=== PATIENT | female | born 1955 | race African-American/Black ===

== ENCOUNTER 2018-05-15 09:16 | Outpatient (CLI) | payer MEDICAID, MEDICARE | END 2018-05-15 09:17 | disposition home or self-care (01) | LOC: BICMAMMO 09:16 | PROVIDERS: ATTEND Emergency Medicine | DX: Z12.31 Encounter for screening mammogram for malignant neoplasm of breast (principal) | CPT/HCPCS: 77063; 77067 ==

== ENCOUNTER 2018-06-04 13:58 | Emergency (ER) | payer MEDICARE ==
[2018-06-04 15:02] LABS: #Basophils 0.1 thou/uL (0.0-0.2); #Eosinphils 0.1 thou/uL (0.0-0.7); #Lymphocytes 2.9 thou/uL (1.20-3.40); #Monocytes 0.7 thou/uL (0.11-0.59); #Neutrophils 4.7 thou/uL (1.40-6.50); %Basophils 1.1 % (0.0-1.0); %Eosinophils 1.4 % (0.0-10.0); %Lymphocytes 33.9 % (21.0-51.0); %Monocytes 8.5 % (0.0-10.0); %Neutrophils 55.2 % (42.0-75.0); Hemoglobin 14.1 g/dL (12.0-16.0); Mean Corpuscular HGB CONC 32.7 g/dL (32.0-36.0); Mean Corpuscular Hemoglobin 31.8 pg (27.0-31.0); Mean Corpuscular Volume 97.4 fL (78.0-98.0); Mean Platelet Volume 8.1 fL (7.4-10.4); Platelet Count 266 thou/uL (130-400); RBC Distribution Width 11.6 % (11.5-14.5); Red Blood Cell (RBC) Count 4.45 mill/uL (4.20-5.40); White Blood Cell (WBC) Count 8.5 thou/uL (4.8-10.8)
[2018-06-04 15:22] LABS: ALT (SGPT) 38 U/L (8-55); AST (SGOT) 34 U/L (5-34); Albumin 3.6 g/dL (3.4-4.8); Alkaline Phosphatase 114 U/L (40-150); Anion Gap 16 mmol/L (10-20); BUN (Urea Nitrogen) 16 mg/dL (9.8-20.1); Bilirubin, Total 0.6 mg/dL (0.2-1.2); CK (CPK) 55 U/L (29-168); Calc. Creatinine Clearance 0 mL/min (70-130); Calcium 9.8 mg/dL (7.8-10.44); Carbon Dioxide 23 mmol/L (23-31); Chloride 105 mmol/L (98-107); Estimated GFR-MDRD 66; Globulin 4.7 g/dL (2.4-3.5); Glucose 112 mg/dL (80-115); Potassium 3.4 mmol/L (3.5-5.1); Protein, Total 8.3 g/dL (6.0-8.3); Sodium 141 mmol/L (136-145)
--- NOTE | 2018-06-04 15:37 | CT ---
CT BRAIN: 06/04/2018 PROVIDED CLINICAL HISTORY: Headache. COMPARISON: None. FINDINGS: Gliosis and encephalomalacia in the distribution of the left middle cerebral artery is noted, compati ble with prior infarction. Mild ex vacuo dilatation of the frontal horn of the left lateral ventricl e. There is no evidence for hydrocephalus. There is no evidence for intraperitoneal hemorrhage or m ass effect. The extracranial soft tissues and osseous structures demonstrate an unremarkable CT appe arance. IMPRESSION: No evidence for intracranial hemorrhage or mass effect. POS: EBONIE
[2018-06-04 15:56] LABS: CKMB 1.3 ng/mL (0-6.6); Troponin I 0.011 ng/mL (< 0.028)
[2018-06-04 16:06] LABS: Bilirubin Negative (Negative); Blood, Urine Trace (Negative); Clarity CLEAR (Clear); Glucose, Urine (Dipstick) 250 mg/dL (Negative); Leukocyte Negative (Negative); Nitrite Negative (Negative); Protein, Urine (Dipstick) 300 mg/dL (Neg-Trace); Specific Gravity, Urine 1.008 (1.002-1.036); pH, Urine 6.5 (5.0-9.0)
[2018-06-04] MEDS ORDERED: diphenhydrAMINE 50 MG/ML VIAL ONE (16:06)
[2018-06-04] MEDS ORDERED: Metoclopramide HCl 10 MG/2 ML VIAL ONE (16:06)
[2018-06-04 16:08] LABS: Bacteria/HPF None Seen HPF (None Seen); Hyaline Casts/LPF 0-3 HYALINE CAST LPF (0-3 Hyaline); RBC/HPF 0-3 HPF (0-3); Squamous Epithelial 0-3 HPF (0-3); WBC/HPF 0-3 HPF (0-3)
[2018-06-04] MEDS ORDERED: hydrALAZINE 20 MG/ML VIAL ONE (16:18)
[2018-06-04] MEDS ORDERED: cloNIDine 0.1 MG TAB ONE (17:07)
== END 2018-06-04 20:00 | disposition home or self-care (01) ==
LOC: ERS 13:58
DX: R51 Headache (principal); I10 Essential (primary) hypertension; E11.9 Type 2 diabetes mellitus without complications; F17.210 Nicotine dependence, cigarettes, uncomplicated; Z71.6 Tobacco abuse counseling; Z79.4 Long term (current) use of insulin; Z79.899 Other long term (current) drug therapy; Z79.82 Long term (current) use of aspirin
CPT/HCPCS: 36415; 70450; 80053; 81003; 81015; 82553; 84484; 85025; 93005; 96365; 96375; 99406; J0360; J1200; J2765

== ENCOUNTER 2018-07-11 12:16 | Outpatient (CLI) | payer MEDICARE ==
[2018-07-11 13:32] LABS: #Basophils 0.1 thou/uL (0.0-0.2); #Eosinphils 0.2 thou/uL (0.0-0.7); #Lymphocytes 3.7 thou/uL (1.20-3.40); #Monocytes 0.8 thou/uL (0.11-0.59); #Neutrophils 3.8 thou/uL (1.40-6.50); %Basophils 0.9 % (0.0-1.0); %Eosinophils 2.7 % (0.0-10.0); %Lymphocytes 42.8 % (21.0-51.0); %Monocytes 9.2 % (0.0-10.0); %Neutrophils 44.4 % (42.0-75.0); Mean Corpuscular HGB CONC 31.5 g/dL (32.0-36.0); Mean Corpuscular Hemoglobin 30.9 pg (27.0-31.0); Mean Corpuscular Volume 98.2 fL (78.0-98.0); Mean Platelet Volume 7.6 fL (7.4-10.4); Platelet Count 332 thou/uL (130-400); RBC Distribution Width 12.9 % (11.5-14.5); White Blood Cell (WBC) Count 8.5 thou/uL (4.8-10.8)
[2018-07-11 13:53] LABS: Anion Gap 12 mmol/L (10-20); BUN (Urea Nitrogen) 36 mg/dL (9.8-20.1); Calc. Creatinine Clearance 0 mL/min (70-130); Calcium 9.4 mg/dL (7.8-10.44); Carbon Dioxide 25 mmol/L (23-31); Chloride 107 mmol/L (98-107); Estimated GFR-MDRD 47; Glucose 126 mg/dL (80-115); Potassium 4.5 mmol/L (3.5-5.1); Sodium 139 mmol/L (136-145)
== END 2018-07-11 12:17 | disposition home or self-care (01) ==
LOC: LABBT 12:16
PROVIDERS: ATTEND Internal Medicine Cardiovascular Disease
DX: Z01.818 Encounter for other preprocedural examination (principal); I33.0 Acute and subacute infective endocarditis
CPT/HCPCS: 80048; 85025; 93005; 93010

== ENCOUNTER 2018-07-13 06:05 | Day surgery (SDC) | payer MEDICARE ==
[2018-07-11 12:38] VITALS: BMI 25.8
--- NOTE | 2018-07-14 23:43 | ECHO ---
INDICATION FOR PROCEDURE: This is a 62-year-old female who had a CVA back in 2011. She has a history of hypertension. She had a recent echocardiogram performed which showed a possible abnormality of the aortic valve and she was advised to undergo a transesophageal echocardiogram. That was performed today without difficulties or complications. IMPRESSIONS: 1. Normal left ventricular systolic function. Ejection fraction of 60-65%. 2. Mild tricuspid valve regurgitation. 3. Trace mitral valve regurgitation. 4. No evidence of left atrial or left atrial appendage thrombus. 5. Mild to moderate left atrial dilatation. 6. Mild thickening of the left aortic valve leaflet, but no evidence of vegetations. 7. Some redundancy of the noncoronary cusp of the aortic valve. No evidence of vegetations or any other significant abnormalities. There was no significant regurgitation. The patient tolerated the procedure well. There were no difficulties or complications encountered. NELY
== END 2018-07-13 10:16 | disposition home or self-care (01) ==
LOC: CCL 06:05
PROVIDERS: ATTEND Internal Medicine Cardiovascular Disease
PROC: B24BZZ4 Ultrasonography of Heart with Aorta, Transesophageal (ICD-10-PCS; principal; 2018-07-13)
DX: I08.1 Rheumatic disorders of both mitral and tricuspid valves (principal); I10 Essential (primary) hypertension; F17.210 Nicotine dependence, cigarettes, uncomplicated; E11.9 Type 2 diabetes mellitus without complications; Z86.73 Personal history of transient ischemic attack (TIA), and cerebral infarction without residual deficits; Z79.84 Long term (current) use of oral hypoglycemic drugs; Z79.899 Other long term (current) drug therapy
CPT/HCPCS: 36416; 93312

== ENCOUNTER 2018-08-29 16:24 | Emergency (ER) | payer MEDICARE ==
[2018-08-29 17:08] LABS: #Basophils 0.1 thou/uL (0.0-0.2); #Eosinphils 0.3 thou/uL (0.0-0.7); #Lymphocytes 2.5 thou/uL (1.20-3.40); #Monocytes 0.6 thou/uL (0.11-0.59); #Neutrophils 3.6 thou/uL (1.40-6.50); %Basophils 1.2 % (0.0-1.0); %Eosinophils 4.1 % (0.0-10.0); %Lymphocytes 35.4 % (21.0-51.0); %Monocytes 8.7 % (0.0-10.0); %Neutrophils 50.6 % (42.0-75.0); Hemoglobin 13.2 g/dL (12.0-16.0); Mean Corpuscular HGB CONC 32.4 g/dL (32.0-36.0); Mean Corpuscular Hemoglobin 31.3 pg (27.0-31.0); Mean Corpuscular Volume 96.7 fL (78.0-98.0); Platelet Count 297 thou/uL (130-400); RBC Distribution Width 12.9 % (11.5-14.5); White Blood Cell (WBC) Count 7.1 thou/uL (4.8-10.8)
[2018-08-29 18:17] LABS: ALT (SGPT) 52 U/L (8-55); AST (SGOT) 55 U/L (5-34); Albumin 3.4 g/dL (3.4-4.8); Alkaline Phosphatase 90 U/L (40-150); Anion Gap 9 mmol/L (10-20); BUN (Urea Nitrogen) 29 mg/dL (9.8-20.1); Bilirubin, Total 0.3 mg/dL (0.2-1.2); Calc. Creatinine Clearance 0 mL/min (70-130); Calcium 9.8 mg/dL (7.8-10.44); Carbon Dioxide 25 mmol/L (23-31); Chloride 111 mmol/L (98-107); Estimated GFR-MDRD 51; Globulin 4.8 g/dL (2.4-3.5); Glucose 90 mg/dL (80-115); Magnesium 1.9 mg/dL (1.6-2.6); Potassium 3.6 mmol/L (3.5-5.1); Protein, Total 8.2 g/dL (6.0-8.3); Sodium 141 mmol/L (136-145)
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
== END 2018-08-29 18:30 | disposition home or self-care (01) ==
LOC: ERS 16:24
DX: E11.649 Type 2 diabetes mellitus with hypoglycemia without coma (principal); I10 Essential (primary) hypertension; F17.210 Nicotine dependence, cigarettes, uncomplicated; Z79.899 Other long term (current) drug therapy; Z86.73 Personal history of transient ischemic attack (TIA), and cerebral infarction without residual deficits; Z79.4 Long term (current) use of insulin
CPT/HCPCS: 36415; 36416; 71045; 80053; 83735; 84484; 85025; 93005

== ENCOUNTER 2019-05-30 08:44 | Outpatient (CLI) | payer MEDICARE, MEDICAID ==
--- NOTE | 2019-05-30 09:21 | MMO ---
Bilateral MAMMO Bilat Screen [facility]. CLINICAL HISTORY: Patient is 63 years old and is seen for screening. VIEWS: The views performed were: . FILMS COMPARED: The present examination has been compared to prior imaging studies performed at [facility] on 05/09/2015, 05/10/2016, 05/11/2017 and 05/15/2018. MAMMOGRAM FINDINGS: There are scattered fibroglandular densities. There are no suspicious masses, suspicious calcifications, or new areas of architectural distortion. IMPRESSION: THERE IS NO MAMMOGRAPHIC EVIDENCE OF MALIGNANCY. A ROUTINE FOLLOW-UP MAMMOGRAM IN 1 YEAR IS RECOMMENDED. THE RESULTS OF THIS EXAM WERE SENT TO THE PATIENT. ACR BI-RADS Category 1 - Negative MAMMOGRAPHY NOTE: 1. A negative mammogram report should not delay a biopsy if a dominant of clinically suspicious mass is present. 2. Approximately 10% to 15% of breast cancers are not detected by mammography. 3. Adenosis and dense breasts may obscure an underlying neoplasm. Reported by: BOBY NAVAS MD Electonically Signed: [id number]
== END 2019-05-30 08:45 | disposition home or self-care (01) ==
LOC: BICMAMMO 08:44
PROVIDERS: ATTEND Emergency Medicine
DX: Z12.31 Encounter for screening mammogram for malignant neoplasm of breast (principal)
CPT/HCPCS: 77063; 77067

== ENCOUNTER 2019-06-26 09:50 | Outpatient (CLI) | payer MEDICARE, MEDICAID ==
--- NOTE | 2019-06-26 10:07 | ULT ---
Bilateral renal ultrasound CLINICAL INDICATION: Chronic kidney disease, stage III COMPARISON: None. FINDINGS: Right kidney: There is no evidence of a renal mass, renal calculus, or hydronephrosis seen. The right kidney measures 10.3 cm x 4.8 cm. Left kidney: There is no evidence of a renal mass, renal calculus, or hydronephrosis seen.The left ki dney measures 10.7 cm x 5 cm. Urinary bladder: Normal appearance with urinary bladder volume of 497.5 mL. IMPRESSION: No evidence of hydronephrosis.
== END 2019-06-26 09:51 | disposition home or self-care (01) ==
LOC: BICULT 09:50
PROVIDERS: ATTEND Internal Medicine Nephrology
DX: N18.3 Chronic kidney disease, stage 3 (moderate) (principal)
CPT/HCPCS: 76770

== ENCOUNTER 2019-08-30 00:48 | Inpatient (IN) | payer MEDICARE, MEDICAID ==
[2019-08-30] MEDS ORDERED: Nitroglycerin 0.4 MG TAB 1 EACH ONE (01:16)
[2019-08-30 01:30] LABS: #Basophils 0.1 thou/uL (0.0-0.2); #Eosinphils 0.4 thou/uL (0.0-0.7); #Lymphocytes 3.9 thou/uL (1.20-3.40); #Neutrophils 7.1 thou/uL (1.40-6.50); %Lymphocytes 31.5 % (21.0-51.0); %Monocytes 7.8 % (0.0-10.0); %Neutrophils 56.8 % (42.0-75.0); Hemoglobin 11.6 g/dL (12.0-16.0); Mean Corpuscular HGB CONC 33.9 g/dL (32.0-36.0); Mean Corpuscular Hemoglobin 32.8 pg (27.0-31.0); Mean Corpuscular Volume 96.9 fL (78.0-98.0); Mean Platelet Volume 8.1 fL (7.4-10.4); Platelet Count 284 thou/uL (130-400); RBC Distribution Width 14.9 % (11.5-14.5); Red Blood Cell (RBC) Count 3.52 mill/uL (4.20-5.40); White Blood Cell (WBC) Count 12.5 thou/uL (4.8-10.8)
--- NOTE | 2019-08-30 01:41 | PDOC.FPRHP ---
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 Patient reports that her SOB began 3 days ago and has been worsening, which brought her to the ED. She also reports cough and congestion, and a subjective fever. She denies hx of COPD, has smoking history of 1/2ppd for multiple decades. States she has an inhaler from Dr. Esparza, but cannot recall what the medication is. Denies chest pain, denies swelling. ED Course: 0.4mg SL nitro x 3, 3ml duoneb, 40meq KCl, 10mg hydralazine, 40mg IV lasix, started on cardene drip - Allergies/Adverse Reactions Allergies Allergy/AdvReac Type Severity Reaction Status Date / Time No Known Allergies Allergy Verified 08/30/19 06:23 - Home Medications Medication Instructions Recorded Confirmed Type Aspirin [Aspir-Low] 81 mg PO DAILY 08/30/19 08/30/19 History Hydrochlorothiazide 12.5 mg PO DAILY 08/30/19 08/30/19 History Insulin Glargine,Hum.Rec.Anlog 10 units SQ DAILY 08/30/19 08/30/19 History [Lantus] Lisinopril 40 mg PO DAILY 08/30/19 08/30/19 History Metoprolol Succinate 25 mg PO DAILY 08/30/19 08/30/19 History - History PMHx: IDDM2, HTN, CKD3, amblyopia with strabismus, and hx of CVA in 99 with residual aphasia/dysphagia PSHx: cholecystectomy, hysterectomy, L cataract removal FHx: sister-HTN, brother-CVA Social: 1/2ppd smoking hx, no etoh use, no drug use - Review of Systems General: reports: fever/chills. denies: weight/appetite/sleep changes Eyes: denies: eye pain, vision changes ENT: reports: other (difficulty with swallowing s/p stroke). denies: nasal congestion, rhinorrhea Respiratory: reports: cough, congestion, shortness of breath Cardiovascular: denies: chest pain, edema Gastrointestinal: denies: nausea, vomiting, diarrhea Genitourinary: reports: other (decreased urine output). denies: dysuria, discharge Skin: denies: jaundice, itching Musculoskeletal: denies: stiffness, swelling Neurological: denies: syncope, seizure Psychological: denies: anxiety, depression - Vital signs BP: [225/107] HR: [101] RR: [42] Tmax: [97.8F] Pox: [96]% on [2.5L] Wt: [68kg ] - Physical Exam Constitutional: awake, alert and oriented, well developed HEENT: normocephalic and atraumatic, grossly normal hearing, MMM, other ( amblyopia x 1 eye) Neck: supple, FROM, trachea midline Chest: no-tender to palpation, no lesions Heart: other (tachycardic, irregular s1/s2, systolic murmur appreciated) Lungs: other (course breath sounds and crackles appreciated throughout) Abdomen: soft, non-tender Musculoskeletal: normal structure, ROM grossly normal Neurological: no focal deficit, normal sensation Skin: good turgor, no jaundice Heme/Lymphatic: no unusual bruising or bleeding, no purpura Psychiatric: normal mood and affect, good judgment and insight FMR H&P: Results - Labs Result Diagrams: 08/30/19 01:08 08/30/19 07:23 Lab results: WBC 12.5 thou/uL (4.8-10.8) H 08/30/19 01:08 Hgb 11.6 g/dL (12.0-16.0) L 08/30/19 01:08 Hct 34.2 % (36.0-47.0) L 08/30/19 01:08 MCV 96.9 fL (78.0-98.0) 08/30/19 01:08 Plt Count 284 thou/uL (130-400) 08/30/19 01:08 Neutrophils % 56.8 % (42.0-75.0) 08/30/19 01:08 - EKG Interpretation EKG: NSR, no ST changes FMR H&P: A/P - Problem List (1) Acute kidney injury superimposed on CKD Current Visit: Yes Status: Acute Code(s): N17.9 - ACUTE KIDNEY FAILURE, UNSPECIFIED; N18.9 - CHRONIC KIDNEY DISEASE, UNSPECIFIED (2) CKD (chronic kidney disease) stage 3, GFR 30-59 ml/min Current Visit: Yes Status: Chronic Code(s): N18.3 - CHRONIC KIDNEY DISEASE, STAGE 3 (MODERATE) (3) Hypertensive emergency Current Visit: Yes Status: Acute Code(s): I16.1 - HYPERTENSIVE EMERGENCY (4) Flash pulmonary edema Current Visit: Yes Status: Acute Code(s): J81.0 - ACUTE PULMONARY EDEMA (5) New onset of congestive heart failure Current Visit: Yes Status: Acute Code(s): I50.9 - HEART FAILURE, UNSPECIFIED (6) Hypokalemia Current Visit: Yes Status: Acute Code(s): E87.6 - HYPOKALEMIA (7) Elevated troponin Current Visit: Yes Status: Acute Code(s): R79.89 - OTHER SPECIFIED ABNORMAL FINDINGS OF BLOOD CHEMISTRY (8) DM2 (diabetes mellitus, type 2) Current Visit: Yes Status: Chronic (9) History of CVA (cerebrovascular accident) Current Visit: Yes Status: Chronic Code(s): Z86.73 - PRSNL HX OF TIA (TIA), AND CEREB INFRC W/O RESID DEFICITS (10) Acute respiratory failure with hypoxia Current Visit: Yes Status: Acute Code(s): J96.01 - ACUTE RESPIRATORY FAILURE WITH HYPOXIA - Plan Patient is a 64F with PMHx of IDDM2, HTN, CKD3, amblyopia with strabismus, and 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 that is admitted to the ICU for hypertensive emergency on cardine drip, flash pulmonary edema, and new-onset CHF #Hypertensive Emergency #Flash Pulmonary Edema #Acute hypoxic respiratory failure -patient hypertensive on evaluation s/p 3x sl nitro, hydralazine 10, lasix 40mg IV -patient started on cardene drip in ED, will continue and titrate for BP <160/ 110 -will hold patient's home BP meds until she stabilizes, then can continue and titrate as necessary -CXR: awaiting official read; no cardiomegaly appreciated, diffuse congestion -repeat CXR @ 0600 to assess s/p lasix diuresis -patient currently requiring NC oxygen, continue with frequent monitoring in ICU for signs of respiratory distress -will continue to diurese as necessary -pulmonology consult #SHARLENE on CKD3 -patient's baseline creatinine 1.2, CKD3 -creatinine 3.58, will follow with 0900 BMP -followed by Dr. Henriquez outpatient, will consult in am -patient has not yet had urine output in ED s/p 40mg IV lasix -will reassess in 1hr and place west cather if patient continues to have zero/ little urine output -will avoid renally toxic medications #New-onset CHF -patient had CHRISTAL in 2018 that demonstrated no signs of CHF -BNP 1473 -CXR: no cardiomegaly, diffuse congestion -repeat cardiac echo ordered -strict I&O -daily weights #Hypokalemia -potassium 3.1 -repleted, continue to monitor #Elevated troponin -trop 0.093, likely due to fluid overload -patient not endorsing chest pain at this time -EKG NSR, no ST changes -will continue to trend #Insulin-dependent DM2 -patient is NPO for now -ISS -will continue patient's home 10u lantus once patient has normal diet #Hx of Stroke -patient has residual dysphagia -patient NPO for now -continue home 81mg asa DVT ppx: heparin Diet: NPO Dispo: ICU admission for cardene drip for hypertensive emergency, monitoring of pulmonary status s/p flash pulmonary edema, continued urine output monitoring and nephro consult for SHARLENE on CKD3 Code: DNR The patient was evaluated by and the case was discussed with Dr. Topete who is in agreement with the current plan of care. FMR H&P: Upper Level - Plan Date/Time: 08/30/19 0139 I, Tristan Warren MD, have evaluated this patient and agree with findings/ plan as outlined by administration intern resident. Pertinent changes/additions are listed here. 64 yo female presents with 3 day history of SOB. She has known HTN and CKD3 and a history of previous non-compliance. Please see administration intern note above for further information. 1. HTN Emergency - Goal of BP <160/110 for 23 hours - Currently on Cardene Drip and will titrate 2. Acute Hypoxic Respiratory Failure - New O2 requirement and supplementation as needed - Likely secondary to above - Will repeat CXR this AM 3. CHF - BNP 1473 on admission - s/p 40 mg IV Lasix with no urine output - Will place west to keep strict I&Os - Will continue home medications as appropriate - Likely will need further diuresis 4. SHARLENE on CKD3 - Baseline 1.2 at primary Hospital Manager's, Dr. Henriquez. - Creatinine 3.58 on admission - Consider gentle IVF PCP: SARAHY Topete CODE STATUS: FULL CODE Disposition: Guarded, will admit to ICU for further evaluation and management. Patient is seen and evaluated with Dr. Alberto Topete who is in agreement with plan. Addendum - Attending - Attending Attestation Date/Time: 08/30/19 1202 I personally evaluated the patient and discussed the management with the team on day of admission. I agree with the History, Examination, Assessment and Plan documented above with any addition or exceptions noted below. One of my patients from clinic. I believe she is out of one of her HTN meds and has been taking aleve frequently. On exam she has diffuse crackles, no swelling , prominent LV PMI. HTN emergency with acute HF and SHARLENE. Nicardipine drip with improvement but no UOP. I discussed possibility of dialysis with her.
[2019-08-30 01:57] LABS: ALT (SGPT) 18 U/L (8-55); AST (SGOT) 27 U/L (5-34); Albumin 2.7 g/dL (3.4-4.8); Alkaline Phosphatase 93 U/L (40-110); Anion Gap 13 mmol/L (10-20); BUN (Urea Nitrogen) 34 mg/dL (9.8-20.1); Bilirubin, Total 0.5 mg/dL (0.2-1.2); Calc. Creatinine Clearance 0 mL/min (70-130); Calcium 8.5 mg/dL (7.8-10.44); Carbon Dioxide 28 mmol/L (23-31); Chloride 104 mmol/L (98-107); Estimated GFR-MDRD 15; Globulin 5.1 g/dL (2.4-3.5); Glucose 117 mg/dL (80-115); Potassium 3.1 mmol/L (3.5-5.1); Protein, Total 7.8 g/dL (6.0-8.3); Sodium 142 mmol/L (136-145)
[2019-08-30] MEDS ORDERED: Potassium Chloride 20 MEQ TAB ONE (02:03)
[2019-08-30 02:13] LABS: CKMB 3.2 ng/mL (0-6.6)
[2019-08-30] MEDS ORDERED: hydrALAZINE 20 MG/ML VIAL ONE (02:16)
[2019-08-30] MEDS ORDERED: Furosemide 40 MG/4 ML VIAL ONE (02:19)
[2019-08-30] MEDS ORDERED: niCARdipine 25 MG in Sodium Chloride 0.9% 250 ML 240 ML IVPB SCH (02:45)
[2019-08-30] MEDS ORDERED: CCU Electrolyte Replacement 1 EACH IVPB SCH (04:01)
[2019-08-30] MEDS ORDERED: Potassium Phosphate 12 MMOL in Sodium Chloride 0.9% 250 ML 250 ML IV PRN (04:08)
[2019-08-30] MEDS ORDERED: Magnesium 2 GM/50 ML 2 GM in Premix Bag 1 BAG IVPB PRN (04:08)
[2019-08-30] MEDS ORDERED: Potassium Phosphate 9 MMOL in Sodium Chloride 0.9% 100 ML IVPB PRN (04:08)
[2019-08-30] MEDS ORDERED: PHOS-NAK 1 PKT PACK PO PRN ×2 (04:08)
[2019-08-30] MEDS ORDERED: Potassium Chloride 40 MEQ in Sodium Chloride 0.9% 250 ML 250 ML IVPB PRN (04:08)
[2019-08-30] MEDS ORDERED: Potassium Phosphate 15 MMOL in Sodium Chloride 0.9% 250 ML 250 ML IV PRN (04:08)
[2019-08-30] MEDS ORDERED: CCU ELECTROLYTE REPLACEMENT PROTOCOL FS PRN (04:08)
[2019-08-30] MEDS ORDERED: Magnesium Oxide 400 MG TAB PO PRN ×2 (04:08)
[2019-08-30] MEDS ORDERED: Potassium Chloride 20 MEQ TAB PO PRN (04:08)
[2019-08-30] MEDS ORDERED: Potassium Chloride 40 MEQ in Premix Bag 1 BAG IVPB PRN (04:08)
[2019-08-30 04:52] LABS: Cocaine Metabolite Screen Not Detected (NotDetected); Medtox Reader # READER 4; Methamphetamine Not Detected (NotDetected); Opiate Screen Not Detected (NotDetected); Phencyclidine (PCP) Not Detected (NotDetected); THC/Cannabinoid Screen Not Detected (NotDetected)
[2019-08-30 04:53] LABS: Amphetamine Not Detected (NotDetected); Barbiturates Screen Not Detected (NotDetected); Benzodiazepine Screen Not Detected (NotDetected); Medtox Control Line Valid? VALID (VALID); Methadone Not Detected (NotDetected); Oxycodone Screen Not Detected (NotDetected); Tricyclic Screen Not Detected (NotDetected)
[2019-08-30 05:06] LABS: Troponin I 0.106 ng/mL (< 0.028)
[2019-08-30] MEDS ORDERED: niCARdipine 50 MG in Sodium Chloride 0.9% 250 ML 230 ML IV SCH (05:45)
[2019-08-30 06:28] VITALS: BMI 26.4
[2019-08-30] MEDS ORDERED: HumaLOG 300 UNITS/3 ML VIAL SC PRN (06:34)
[2019-08-30] MEDS ORDERED: Dextrose 50% Abboject 50 ML SYRINGE SLOW IVP PRN (06:34)
[2019-08-30] MEDS ORDERED: Acetaminophen 325 MG TAB PO PRN (06:34)
[2019-08-30] MEDS ORDERED: Ondansetron ODT 4 MG TAB PO PRN (06:34)
[2019-08-30] MEDS ORDERED: Famotidine 20 MG TAB PO PRN (06:34)
[2019-08-30] MEDS ORDERED: Dextrose 5% in Water 1,000 ML IV PRN (06:34)
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
[2019-08-30 08:07] LABS: Troponin I 0.125 ng/mL (< 0.028)
[2019-08-30 08:17] LABS: Anion Gap 16 mmol/L (10-20); BUN (Urea Nitrogen) 34 mg/dL (9.8-20.1); Calc. Creatinine Clearance 19 mL/min (70-130); Calcium 8.5 mg/dL (7.8-10.44); Carbon Dioxide 22 mmol/L (23-31); Chloride 105 mmol/L (98-107); Estimated GFR-MDRD 16; Glucose 190 mg/dL (80-115); Sodium 140 mmol/L (136-145)
[2019-08-30 08:26] LABS: Potassium 2.9 mmol/L (3.5-5.1)
[2019-08-30 09:20] LABS: Magnesium 1.5 mg/dL (1.6-2.6); Phosphorus 3.9 mg/dL (2.3-4.7)
[2019-08-30] MEDS ORDERED: Potassium Chloride 40 MEQ in Sodium Chloride 0.9% 250 ML 250 ML IVPB SCH (09:30)
[2019-08-30] MEDS ORDERED: Magnesium Sulfate 3 GM in Sodium Chloride 0.9% 100 ML IVPB SCH (10:00)
[2019-08-30] MEDS: Aspirin Chewable 81 MG TAB PO SCH (10:36)
[2019-08-30] MEDS: Heparin 5,000 UNITS/ML VIAL SC SCH ×3 (10:36→21:18)
[2019-08-30] MEDS: HumaLOG 300 UNITS/3 ML VIAL SC PRN ×2 (10:36→16:14)
[2019-08-30] MEDS ORDERED: Insulin Glargine 10 UNITS in Pre-Filled Syringe 1 EACH SC SCH ×2 (10:45→16:00)
[2019-08-30 10:54] LABS: Bacteria/HPF None Seen HPF (None Seen); RBC/HPF 0-3 HPF (0-3); Squamous Epithelial 0-3 HPF (0-3); WBC/HPF 0-3 HPF (0-3)
[2019-08-30] MEDS ORDERED: Potassium Chloride 20 MEQ TAB PO SCH (12:00)
[2019-08-30] MEDS ORDERED: Carvedilol 25 MG TAB PO SCH (12:00)
[2019-08-30] MEDS: Carvedilol 25 MG TAB PO SCH ×2 (12:46→16:13)
[2019-08-30] MEDS ORDERED: Labetalol HCl 100 MG/20 ML VIAL SLOW IVP PRN (12:57)
--- NOTE | 2019-08-30 15:19 | CON ---
DATE OF CONSULTATION: 08/30/2019 SERVICE: Pulmonary Medicine. REASON FOR CONSULTATION: ICU patient. HISTORY OF PRESENT ILLNESS: The patient is a 64-year-old female with past medical history significant for hypertension. She is in her usual state of health when she started having onset of increasing dyspnea on exertion. She was not having orthopnea, paroxysmal nocturnal dyspnea. Ultimately, she presented to the emergency department. She was discovered to be extremely hypertensive. She had some crackles. As such, she was given some Lasix and initiated on a Cardene drip. Her blood pressures have been under decent control overnight. She denies having any fevers, chills, sputum production, nausea, vomiting, or diarrhea and is otherwise in her usual state of health. PAST MEDICAL HISTORY: 1. Type 2 diabetes mellitus. 2. Hypertension. 3. Chronic kidney disease stage 3. 4. History of CVA. 5. Oropharyngeal dysphagia, mild. 6. Strabismus, since childhood. PAST SURGICAL HISTORY: 1. Cholecystectomy. 2. Hysterectomy. 3. Left cataract surgery. FAMILY HISTORY: Noncontributory. SOCIAL HISTORY: She continues to smoke half pack on a daily basis. She denies any alcohol or illicit drugs, though she has very poor dentition. She has no exposure to chemicals, dust, asbestos, or tuberculosis that she is aware of. ALLERGIES: NO KNOWN DRUG ALLERGIES. MEDICATIONS: List of her inpatient medications was reviewed. I have added back some of her home blood pressure medications and escalated these doses. REVIEW OF SYSTEMS: General, head, ears, eyes, nose, throat, cardiovascular, respiratory, GI, , musculoskeletal, neurologic, and skin is negative except as mentioned in the HPI. PHYSICAL EXAMINATION: VITAL SIGNS: Afebrile, pulse 99, blood pressure 169/76, respirations 7, saturation 94%, currently on 3 L nasal cannula. GENERAL: The patient is awake and alert, in no apparent distress. LUNGS: Decent air entry. There is not a prolonged expiratory phase. Dependent crackles are mild. There is minimal wheezing present. HEART: Normal rate, regular. ABDOMEN: Soft, nontender, nondistended. Bowel sounds are positive. MUSCULOSKELETAL: No cyanosis or clubbing. There is trace edema present. NEUROLOGIC: Grossly nonfocal. LABORATORY DATA: WBC 12.5, hemoglobin 11.6, platelets 284,000. Potassium 2.9. Creatinine 3.54, which is roughly stable, and well above baseline. Magnesium 1.5. BNP 1400, troponin 0.125. Liver function studies are otherwise unremarkable. Lactate negative. Urine drug screen is unremarkable. Influenza A and B are unremarkable. IMAGING: Chest x-ray demonstrates bilateral fluffy infiltrates are present. There is slight sparing of the bilateral diaphragm. There is a possible infiltrate at the left base versus some atelectasis. Cardiac silhouette is not terribly enlarged at this point. I do not identify any devices. Compared to last night, there has been interval improvement in the edema and vascular congestion. ASSESSMENT: 1. Acute hypoxic respiratory failure. 2. Hypertensive emergency. 3. Unw-PR-fihapkkgn myocardial infarction secondary to demand. 4. Acute on chronic diastolic heart failure. 5. Acute kidney injury on chronic kidney disease 3. DISCUSSION AND PLAN: We will escalate the patient's blood pressure medications. Metoprolol be changed over to Coreg as it typically has slightly better blood pressure control. Potassium and magnesium will be replaced. I will wean the Cardene drip down. Once she is off it, she will be stable for transition to the floor. Oxygen will be weaned away through time. She has had a significant output with the dose of Lasix that she got. Pulmonary/Critical Care will follow in this location but when she leaves, she will have no further need for Pulmonary opinion, and I will sign off. In the outpatient setting, a chest x-ray should be pursued in 4 to 6 weeks to verify the infiltrates have resolved. 70 minutes have been devoted to this patient in various activities. I personally reviewed all imaging studies and laboratory data noted within this document. For fifty percent of this time, I was interacting with the patient at the bedside or coordinating care with the care team. For the remainder of the time I was immediately available to the patient in the hospital unit. Job ID: [id number] MTDD
--- NOTE | 2019-08-30 15:30 | ULT ---
Exam: Renal ultrasound with renal Doppler HISTORY: Hypertension. Evaluate for renal artery stenosis. COMPARISON: None TECHNIQUE: Grayscale, color flow, Doppler imaging and spectral waveform analysis performed of the abhishek al arteries. Renal cortices are evaluated with sagittal and transverse grayscale imaging FINDINGS: Right kidney: No cortical masses or hydronephrosis. Right kidney measures 11.1 x 4.5 x 5.9 cm. Left kidney: No cortical masses or hydronephrosis. Left kidney measures 4.7 x 11.0 x 4.6 cm Doppler imaging: Right renal artery peak velocity: 61.9 cm/s Left renal artery peak velocity: 73.6 cm/s. Aorta: Peak velocity: 97.9 cm/s Neither renal artery to aorta ratios above 3 Right arcuate artery resistive index: Upper pole 0.68, midpole 0.67, lower pole 0.61 Left arcuate artery resistive index: Upper pole 0.78, midpole and lower pole resistive index cannot b e assessed. This examination is limited due to patient inability to hold her breath and cough. Urinary bladder cannot be assessed due to Ramírez catheterization IMPRESSION: 1. No evidence of significant renal artery stenosis, based upon sonography. 2. Increased resistive index in the upper pole of the left kidney. Correlate clinically for medical r enal disease. Transcribed Date/Time: 08/30/2019 3:33 PM
[2019-08-30] MEDS: hydrALAZINE 25 MG TAB PO SCH ×2 (16:13→21:19)
--- NOTE | 2019-08-30 17:45 | CON ---
DATE OF CONSULTATION: 08/30/2019 CONSULTING PHYSICIAN: Dr. Chan. REASON FOR CONSULTATION: Acute kidney injury. REASON FOR ADMISSION: Shortness of breath. HISTORY OF PRESENT ILLNESS: A 64-year-old female with history of type 2 diabetes, hypertension, CKD, came to the hospital with shortness of breath and found to have fluid overload and hypertensive emergency, and is being admitted. She was seen in ICU. She was feeling better. No nausea or vomiting. No chest pain or palpitation. Blood pressure was getting under control. PAST MEDICAL HISTORY: Positive for type 2 diabetes, hypertension, CKD, . PAST SURGICAL HISTORY: Cholecystectomy, hysterectomy, and left cataract. HOME MEDICATIONS: 1. Aspirin. 2. Hydrochlorothiazide. 3. Lisinopril. 4. Metoprolol. ALLERGIES: NO KNOWN DRUG ALLERGIES. SOCIAL HISTORY: Half pack per day smoking. No alcohol or illicit drug abuse. FAMILY HISTORY: Positive for CVA. REVIEW OF SYMPTOMS: CONSTITUTIONAL: Negative for weight loss or gain, ability to conduct usual activities. SKIN: Negative for rash, itching. EYES: Negative for double vision, pain. ENT/MOUTH: Negative for nose bleeding, neck stiffness, pain, tenderness. CARDIOVASCULAR: Negative for palpitations, dyspnea on exertion, orthopnea. RESPIRATORY: Negative for shortness of breath, wheezing, cough, hemoptysis, fever or night sweats. GASTROINTESTINAL: Negative for poor appetite, abdominal pain, heartburn, nausea, vomiting, constipation, or diarrhea. GENITOURINARY: Negative for urgency, frequency, dysuria, nocturia. MUSCULOSKELETAL: Negative for pain, swelling. NEUROLOGIC/PSYCHIATRIC: Negative for anxiety, depression. ALLERGY/IMMUNOLOGIC: Negative for skin rash, bleeding tendency. PHYSICAL EXAMINATION: GENERAL: This is a well-built female, in no apparent distress. VITAL SIGNS: Temperature 97.5, pulse 69, respiratory rate 20, blood pressure 170/70. HEENT: Atraumatic, normocephalic. Oral mucosa is moist. NECK: Supple. CVS: S1 and S2 heard, rate and rhythm regular. RESPIRATORY: Clear. GI: Abdomen is soft. MUSCULOSKELETAL: DERMATOLOGIC: No skin rash. NEUROLOGIC: Alert and awake. PSYCHIATRIC: Mood and affect normal LABORATORY DATA: Hemoglobin 11.6. Potassium 2.9, BUN 34, and creatinine 3.5. ASSESSMENT AND PLAN: 1. Acute kidney injury on chronic kidney disease, stage 3. We will monitor renal function closely. Okay with Lasix as needed for fluid overload. 2. Fluid overload, on Lasix. 3. Hypokalemia, replace cautiously. 4. Hypomagnesemia. 5. Edema. 6. History of hypertension. We will check renal ultrasound with Doppler. 7. Anemia. 8. Hypertensive emergency. Continue close monitoring and titrating carvedilol. Metoprolol was changed to carvedilol. Continue to titrate medications. We will monitor renal function. Avoid nephrotoxins. No acute indication for dialysis. Replace electrolytes cautiously and monitor closely. We will follow. Thank you for the consult. Job ID: [id number]
[2019-08-31] MEDS: hydrALAZINE 20 MG/ML VIAL SLOW IVP PRN ×2 (05:34→15:58)
--- NOTE | 2019-08-31 06:45 | PDOC.FM ---
- Subjective Subjective: NAEO. Patient sitting up at the side of her bed eating breakfast. Denies any SOB , chest or abdominal pain, NVD, vision changes or headaches. Tolerating PO. - Objective MAR Reviewed: Yes Vital Signs & Weight: Vital Signs (12 hours) Temp Pulse Resp BP BP Pulse Ox 08/31/19 05:34 82 201/91 H 08/31/19 04:00 97.4 F L 85 21 H 181/88 H 94 L 08/31/19 00:00 97.6 F 77 179/80 H 93 L 08/30/19 21:19 80 170/82 H 08/30/19 20:00 92 L Weight Weight 77.111 kg Most Recent Monitor Data Heart Rate from ECG 69 NIBP 171/78 NIBP BP-Mean 109 Respiration from ECG 23 SpO2 97 I&O: 08/29/19 08/30/19 08/31/19 06:59 06:59 06:59 Intake Total 370 1444 Output Total 475 895 Balance -105 549 Result Diagrams: 08/31/19 06:50 08/31/19 06:50 Phys Exam - Physical Examination Constitutional: NAD HEENT: PERRLA, moist MMs, sclera anicteric Neck: supple, full ROM Minimal crackles heard at b/l lung bases, no resp distress noted Cardiovascular: RRR, no significant murmur, no rub Gastrointestinal: soft, non-tender, no distention, positive bowel sounds Musculoskeletal: pulses present Neurological: non-focal, moves all 4 limbs Psychiatric: normal affect, A&O x 3 Skin: no rash, normal turgor, cap refill <2 seconds Dx/Plan (1) Acute kidney injury superimposed on CKD Code(s): N17.9 - ACUTE KIDNEY FAILURE, UNSPECIFIED; N18.9 - CHRONIC KIDNEY DISEASE, UNSPECIFIED Status: Acute (2) Acute respiratory failure with hypoxia Code(s): J96.01 - ACUTE RESPIRATORY FAILURE WITH HYPOXIA Status: Acute (3) Elevated troponin Code(s): R79.89 - OTHER SPECIFIED ABNORMAL FINDINGS OF BLOOD CHEMISTRY Status : Acute (4) Flash pulmonary edema Code(s): J81.0 - ACUTE PULMONARY EDEMA Status: Acute (5) Hypertensive emergency Code(s): I16.1 - HYPERTENSIVE EMERGENCY Status: Acute (6) Hypokalemia Code(s): E87.6 - HYPOKALEMIA Status: Acute (7) New onset of congestive heart failure Code(s): I50.9 - HEART FAILURE, UNSPECIFIED Status: Acute (8) CKD (chronic kidney disease) stage 3, GFR 30-59 ml/min Code(s): N18.3 - CHRONIC KIDNEY DISEASE, STAGE 3 (MODERATE) Status: Chronic (9) DM2 (diabetes mellitus, type 2) Status: Chronic (10) History of CVA (cerebrovascular accident) Code(s): Z86.73 - PRSNL HX OF TIA (TIA), AND CEREB INFRC W/O RESID DEFICITS Status: Chronic - Plan Plan: 64 yo female presents with 3 day history of SOB. She has known HTN and CKD3 and a history of previous non-compliance. Please see nutrition internship note above for further information. #HTN Emergency s/p 3x sl nitro, hydralazine, lasix in the ER. BP remains elevated. - Cardene drip stopped. Coreg and hydralazine initiated. Will titrate up coreg to 25mg BID and increase hydralazine to QID. Will monitor BP closely and adjust medications as necessary. Can consider adding amlodipine. - Pulm consulted, appreciate recs. - Nephro consulted. Changed from metoprolol to coreg. Appreciate recommendations. #Acute Hypoxic Respiratory Failure New O2 requirement and supplementation as needed. Likely 2/2 to above. - Will repeat CXR this AM - Pulm consulted, appreciate recommendations. #CHF, new onset BNP 1473 on admission. CHRISTAL in 2018 with no CHF. s/p 40 mg IV Lasix with no urine output. - Will place west to keep strict I&Os - Echo Pending - Will continue home medications as appropriate #SHARLENE on CKD3 Baseline 1.2 at primary [employer], Dr. Henriquez. Creatinine 3.58 on admission. - Cr. 3.81 this AM - Nephro consulted, no need for dialysis at this time. Lasix okay for diuresis as needed. Will replete electrolytes as necessary and monitor closely. #Hypokalemia Potassium 3.1 on admission. Will replace and continue to monitor. K 3.4 this AM. #Elevated troponin Trop 0.093, likely due to fluid overload and kidney disease. EKG NSR, no events on tele. #IDDM2 - SS, resume glargine 10u qAM. ACHS accuchecks. #Hx of Stroke Residual dysphagia. - Continue home ASA Code: Full PCP: SARAHY Topete Ppx: Heparin Disposition: Pending clinical course. Case discussed with Dr. Saenz. Addendum - Attending - Attending Attestation Date/Time: 08/31/19 3005 I personally evaluated the patient and discussed the management with Dr. Llanos. I agree with the History, Examination, Assessment and Plan documented above with any addition or exceptions noted below. Patient here for HTN emergency, improved off Cardene and on PO BP meds. Continue to escalate, consider CCB as long as no systolic heart failure. Renal function continues to be stable and poor, Nephro on board. Hopeful that BP mgmt will lead to improvement. Awaiting echo.
[2019-08-31] MEDS ORDERED: FLU VACC TS2019-20(65YR UP)/PF 180 MCG/0.5 ML SYRINGE IM ONE (07:15)
[2019-08-31 07:35] LABS: #Basophils 0.1 thou/uL (0.0-0.2); #Eosinphils 0.3 thou/uL (0.0-0.7); #Lymphocytes 3.4 thou/uL (1.20-3.40); #Monocytes 0.7 thou/uL (0.11-0.59); #Neutrophils 5.4 thou/uL (1.40-6.50); %Basophils 0.7 % (0.0-1.0); %Eosinophils 3.4 % (0.0-10.0); %Lymphocytes 33.9 % (21.0-51.0); %Monocytes 7.4 % (0.0-10.0); %Neutrophils 54.5 % (42.0-75.0); Hemoglobin 10.1 g/dL (12.0-16.0); Mean Corpuscular HGB CONC 32.9 g/dL (32.0-36.0); Mean Corpuscular Hemoglobin 31.9 pg (27.0-31.0); Mean Platelet Volume 8.3 fL (7.4-10.4); Platelet Count 306 thou/uL (130-400); RBC Distribution Width 15.1 % (11.5-14.5); Red Blood Cell (RBC) Count 3.17 mill/uL (4.20-5.40); White Blood Cell (WBC) Count 9.9 thou/uL (4.8-10.8)
[2019-08-31 07:49] LABS: Anion Gap 10 mmol/L (10-20); BUN (Urea Nitrogen) 36 mg/dL (9.8-20.1); Calc. Creatinine Clearance 18 mL/min (70-130); Calcium 8.5 mg/dL (7.8-10.44); Carbon Dioxide 28 mmol/L (23-31); Chloride 110 mmol/L (98-107); Estimated GFR-MDRD 14; Glucose 109 mg/dL (80-115); Potassium 3.4 mmol/L (3.5-5.1); Sodium 145 mmol/L (136-145)
[2019-08-31] MEDS ORDERED: Potassium Chloride 20 MEQ TAB PO SCH (08:30)
[2019-08-31] MEDS: Aspirin Chewable 81 MG TAB PO SCH (08:36)
[2019-08-31] MEDS: Insulin Glargine 10 UNITS in Pre-Filled Syringe 1 EACH SC SCH (08:36)
[2019-08-31] MEDS: Heparin 5,000 UNITS/ML VIAL SC SCH ×3 (08:36→20:05)
[2019-08-31] MEDS ORDERED: Carvedilol 25 MG TAB PO SCH (08:45)
[2019-08-31 08:51] LABS: Magnesium 2.3 mg/dL (1.6-2.6); Phosphorus 3.8 mg/dL (2.3-4.7)
[2019-08-31] MEDS ORDERED: Lisinopril 20 MG TAB PO SCH (09:00)
[2019-08-31] MEDS ORDERED: Hydrochlorothiazide 25 MG TAB PO SCH (09:00)
[2019-08-31] MEDS ORDERED: hydrALAZINE 25 MG TAB PO SCH (09:00)
--- NOTE | 2019-08-31 10:11 | PRG ---
DATE OF SERVICE: 08/31/2019 SUBJECTIVE: Patient was seen and examined at bedside and overnight events noted. Patient denies any shortness of breath or chest pain or palpitation. No history of nausea or vomiting or diarrhea or fever or chills or cramps. OBJECTIVE: GENERAL: This is a well-built female, in no apparent distress. VITAL SIGNS: Temperature 97.5. Heart rate 87. Respiratory rate 18. Blood pressure 176/83. HEENT: Atraumatic, normocephalic. Oral mucosa is moist NECK: Supple. CARDIOVASCULAR: S1, S2 heard. Rate and rhythm regular. RESPIRATORY: Clear to auscultation. GASTROINTESTINAL: Abdomen is soft. MUSCULOSKELETAL: No tenderness. No edema. DERMATOLOGIC: No skin rash. NEUROLOGIC: Alert and awake and oriented X3. No focal neurologic deficits. Moving all the extremities. PSYCHIATRIC: Mood and affect normal. LABORATORY DATA: Potassium 3.4, BUN is 36, and creatinine is 3.8. ASSESSMENT AND PLAN: 1. Acute kidney injury on chronic kidney disease stage 3 with stable creatinine slightly worse from yesterday. Plan is to control blood pressure and monitor renal function now, still no acute indication for dialysis. 2. Hypokalemia. Replace and monitor. 3. Fluid overload. Okay with Lasix if needed. 4. Hypomagnesemia. We will replace. 5. History of hypertension. 6. Anemia. 7. Hypertensive emergency. Plan is to control blood pressure and monitor renal function. No acute indication for dialysis. We will follow. We will check renin aldosterone level too. Renal ultrasound was negative for any renal artery stenosis. Job ID: [id number]
[2019-08-31] MEDS: Nicotine 21 MG PATCH TD SCH (10:12)
[2019-08-31] MEDS ORDERED: NIFEdipine XL 30 MG TAB PO SCH (10:45)
[2019-08-31] MEDS: HumaLOG 300 UNITS/3 ML VIAL SC PRN ×2 (11:55→18:05)
[2019-08-31] MEDS: Carvedilol 25 MG TAB PO SCH (18:06)
--- NOTE | 2019-09-01 06:08 | PDOC.FM ---
- Subjective Subjective: Pt says her breathing is "so-so" this morning. On 3 L NC. No chest pain. Not on O2 at home. I/O + balance, urine output 450 mL over past 24 hrs. - Objective MAR Reviewed: Yes Vital Signs & Weight: Vital Signs (12 hours) Temp Pulse Resp BP Pulse Ox 09/01/19 03:59 98.9 F 85 18 172/79 H 92 L 08/31/19 20:00 88 L Weight Weight 77.111 kg Most Recent Monitor Data Heart Rate from ECG 69 NIBP 171/78 NIBP BP-Mean 109 Respiration from ECG 23 SpO2 97 I&O: 08/30/19 08/31/19 09/01/19 06:59 06:59 06:59 Intake Total 370 1444 900 Output Total 475 895 450 Balance -105 549 450 Result Diagrams: 08/31/19 06:50 09/01/19 06:25 Phys Exam - Physical Examination Constitutional: NAD Respiratory: wheezing present (scattered exp wheezing, mild crackles at lung bases.) Cardiovascular: RRR (soft diastolic murmur) Gastrointestinal: soft Musculoskeletal: no edema, pulses present Psychiatric: normal affect, A&O x 3 Dx/Plan (1) Acute kidney injury superimposed on CKD Code(s): N17.9 - ACUTE KIDNEY FAILURE, UNSPECIFIED; N18.9 - CHRONIC KIDNEY DISEASE, UNSPECIFIED Status: Acute (2) Flash pulmonary edema Code(s): J81.0 - ACUTE PULMONARY EDEMA Status: Acute (3) Hypertensive emergency Code(s): I16.1 - HYPERTENSIVE EMERGENCY Status: Acute (4) Hypokalemia Code(s): E87.6 - HYPOKALEMIA Status: Acute (5) New onset of congestive heart failure Code(s): I50.9 - HEART FAILURE, UNSPECIFIED Status: Acute (6) DM2 (diabetes mellitus, type 2) Status: Chronic (7) History of CVA (cerebrovascular accident) Code(s): Z86.73 - PRSNL HX OF TIA (TIA), AND CEREB INFRC W/O RESID DEFICITS Status: Chronic - Plan Plan: 64 yo female presents with 3 day history of SOB. She has known HTN and CKD3 and a history of previous non-compliance. HTN Emergency - s/p 3x sl nitro, hydralazine, lasix in the ER. BP remains elevated. - Cardene drip stopped. Coreg and hydralazine initiated. Will titrate up coreg to 25mg BID and increase hydralazine to QID. - Will monitor BP closely and adjust medications as necessary. Added nifedipine this AM. - Pulm consulted, appreciate recs. - Nephro consulted. Changed from metoprolol to coreg. Appreciate recommendations. Acute Hypoxic Respiratory Failure New O2 requirement and supplementation as needed. Likely 2/2 to above. - Lasix today, 20 IV. CHF, new onset BNP 1473 on admission. CHRISTAL in 2018 with no CHF. s/p 40 mg IV Lasix with no urine output. - Will place west to keep strict I&Os - Echo today showing diastolic dysfunction. Normal EF. - Will continue home medications as appropriate SHARLENE on CKD3 Baseline 1.2 at primary [employer], Dr. Henriquez. Creatinine 3.58 on admission. - Cr. 3.81 this AM - Nephro consulted, no need for dialysis at this time. Lasix okay for diuresis as needed. Will replete electrolytes as necessary and monitor closely. - Renin/Fco pending Hypokalemia - Will replace and continue to monitor. Elevated troponin -Trop 0.093, likely due to fluid overload and kidney disease. EKG NSR, no events on tele. IDDM2 - SS, resume glargine 10u qAM. ACHS accuchecks. Hx of Stroke Residual dysphagia. - Continue home ASA Code: Full PCP: SARAHY Topete Ppx: Heparin Disposition: Pending clinical course.
[2019-09-01 07:02] LABS: Anion Gap 14 mmol/L (10-20); BUN (Urea Nitrogen) 38 mg/dL (9.8-20.1); Calc. Creatinine Clearance 20 mL/min (70-130); Calcium 8.6 mg/dL (7.8-10.44); Carbon Dioxide 20 mmol/L (23-31); Chloride 111 mmol/L (98-107); Estimated GFR-MDRD 16; Glucose 86 mg/dL (80-115); Potassium 3.4 mmol/L (3.5-5.1); Sodium 142 mmol/L (136-145)
[2019-09-01] MEDS ORDERED: Furosemide 20 MG/2 ML VIAL SLOW IVP SCH (07:49)
[2019-09-01] MEDS ORDERED: Potassium Chloride 20 MEQ TAB PO SCH (08:00)
[2019-09-01] MEDS: Aspirin Chewable 81 MG TAB PO SCH (08:44)
[2019-09-01] MEDS: Heparin 5,000 UNITS/ML VIAL SC SCH ×3 (08:45→21:45)
[2019-09-01] MEDS: Insulin Glargine 10 UNITS in Pre-Filled Syringe 1 EACH SC SCH (08:45)
[2019-09-01] MEDS: Nicotine 21 MG PATCH TD SCH (08:47)
[2019-09-01] MEDS ORDERED: NIFEdipine XL 30 MG TAB PO SCH (09:00)
[2019-09-01] MEDS: Carvedilol 25 MG TAB PO SCH ×3 (09:03→18:54)
--- NOTE | 2019-09-01 11:37 | PRG ---
DATE OF SERVICE: 09/01/2019 SUBJECTIVE: Patient was seen and examined at bedside and overnight events noted. Patient denies any shortness of breath or chest pain or palpitation. No history of nausea or vomiting or diarrhea or fever or chills or cramps. OBJECTIVE: GENERAL: This is a well-built female, in no apparent distress. VITAL SIGNS: Temperature 99.0. Heart rate 89. Respiratory rate 18. Blood pressure 189/86. HEENT: Atraumatic, normocephalic. Oral mucosa is moist NECK: Supple. CARDIOVASCULAR: S1, S2 heard. Rate and rhythm regular. RESPIRATORY: Clear to auscultation. GASTROINTESTINAL: Abdomen is soft. MUSCULOSKELETAL: No tenderness. No edema. DERMATOLOGIC: No skin rash. NEUROLOGIC: Alert and awake and oriented X3. No focal neurologic deficits. Moving all the extremities. PSYCHIATRIC: Mood and affect normal. LABORATORY DATA: Potassium is 3.4, BUN is 38, and creatinine is 3.5. ASSESSMENT AND PLAN: 1. Acute kidney injury on chronic kidney disease stage 3 with slight improvement in creatinine, but this patient is showing fluctuations. Plan is to control blood pressure and then monitor renal function. 2. Hypokalemia, replace. Planned aldosterone level pending. 3. Fluid overload on low dose of IV Lasix. 4. Hypomagnesemia. Monitor and replace. 5. History of hypertension, medication being titrated. Agree with Procardia and uptitrate as needed. 6. Anemia of chronic disease. 7. Hypertensive emergency. Agree with Cardiology evaluation and we will continue updated medications and monitor renal function closely. Job ID: [id number]
[2019-09-01] MEDS: HumaLOG 300 UNITS/3 ML VIAL SC PRN (13:38)
[2019-09-01] MEDS: hydrALAZINE 20 MG/ML VIAL SLOW IVP PRN (15:02)
--- NOTE | 2019-09-01 17:13 | CON ---
DATE OF CONSULTATION: HISTORY OF PRESENT ILLNESS: The patient is a 64-year-old woman, who presents with increasing dyspnea. The patient has a history of chronic renal insufficiency. She had suffered a previous cerebrovascular accident. The patient underwent transesophageal echocardiogram in 2018 and was found to have normal left ventricular systolic function and a mild thickening of the aortic valve leaflets. The patient was in her usual state of health when she presented with progressive dyspnea over the past several days. The patient denies having any chest discomfort. She reports having PND. PAST MEDICAL HISTORY: 1. Cerebrovascular accident. 2. Hypertension. 3. Chronic renal insufficiency. 4. Diabetes mellitus. 5. History of CVA. PAST SURGICAL HISTORY: Cholecystectomy, hysterectomy, and cataract surgery. SOCIAL HISTORY: Long history of tobacco abuse. FAMILY HISTORY: No strong family history of heart disease. ALLERGIES: NO KNOWN DRUG ALLERGIES. MEDICATIONS: See nursing list. REVIEW OF SYSTEMS: Ten-point system otherwise unremarkable. PHYSICAL EXAMINATION: GENERAL: Well-developed woman, in no acute distress. VITAL SIGNS: With a blood pressure 191/86. NECK: Showed no jugular venous distention. LUNGS: Have crackles in both lung ojeda. HEART: Regular rate and rhythm with a normal S1 and S2. A 1/6 systolic murmur. ABDOMEN: Nondistended. EXTREMITIES: Show trace edema. VASCULAR: Radial pulses 2+. LABORATORY DATA: Sodium 142, potassium 3.4, chloride 111, bicarb 20, BUN 38, and creatinine is 3.5. Her white blood cell count was 9.9, hemoglobin 10.1, hematocrit 30.8, and platelets 306. EKG normal sinus rhythm with a nonspecific T-wave abnormality. Echocardiogram normal left ventricular ejection fraction 60% to 65% with diastolic dysfunction. Chest x- ray revealed pulmonary edema. IMPRESSION: 1. Hypertensive crisis. 2. Congestive heart failure secondary to diastolic dysfunction. 3. Acute on chronic renal failure. 4. Diabetes mellitus. 5. Tobacco abuse. PLAN: This patient presents with congestive heart failure, blood pressure is poorly controlled. We will increase the dose of her Nifedipine to try to lower her blood pressure. Would diurese the patient with IV Lasix. The patient's prognosis is guarded. We will follow this patient with you through her hospitalization. Job ID: [id number] [facility]
[2019-09-01] MEDS: NIFEdipine XL 30 MG TAB PO SCH (21:44)
[2019-09-02 04:53] LABS: Anion Gap 14 mmol/L (10-20); BUN (Urea Nitrogen) 41 mg/dL (9.8-20.1); Calc. Creatinine Clearance 19 mL/min (70-130); Calcium 8.3 mg/dL (7.8-10.44); Carbon Dioxide 22 mmol/L (23-31); Chloride 111 mmol/L (98-107); Estimated GFR-MDRD 15; Glucose 106 mg/dL (80-115); Potassium 3.4 mmol/L (3.5-5.1); Sodium 144 mmol/L (136-145)
--- NOTE | 2019-09-02 05:48 | PDOC.FM ---
- Subjective Subjective: Pt says her breathing is "better" this AM. Denies chest pain. Overnight telemetry showed 2 instances of non-conductive PACs that brought HR to the 30s. Pt has not felt any abnormal palpitations or lightheaded. - Objective MAR Reviewed: Yes Vital Signs & Weight: Vital Signs (12 hours) Temp Pulse Resp BP BP Pulse Ox 09/01/19 21:44 72 144/67 H 09/01/19 19:48 98.1 F 72 16 144/67 H 92 L Weight Weight 80.24 kg Most Recent Monitor Data Heart Rate from ECG 69 NIBP 171/78 NIBP BP-Mean 109 Respiration from ECG 23 SpO2 97 I&O: 08/31/19 09/01/19 09/02/19 06:59 06:59 06:59 Intake Total 1444 1140 950 Output Total 895 750 620 Balance 549 390 330 Result Diagrams: 08/31/19 06:50 09/02/19 04:23 Phys Exam - Physical Examination Constitutional: NAD Respiratory: no wheezing (bibasilar inspiratory crackles) Cardiovascular: RRR (diastolic murmur) Musculoskeletal: no edema Neurological: non-focal Psychiatric: normal affect, A&O x 3 Dx/Plan (1) Acute kidney injury superimposed on CKD Code(s): N17.9 - ACUTE KIDNEY FAILURE, UNSPECIFIED; N18.9 - CHRONIC KIDNEY DISEASE, UNSPECIFIED Status: Acute (2) Flash pulmonary edema Code(s): J81.0 - ACUTE PULMONARY EDEMA Status: Acute (3) Hypertensive emergency Code(s): I16.1 - HYPERTENSIVE EMERGENCY Status: Acute (4) Hypokalemia Code(s): E87.6 - HYPOKALEMIA Status: Acute (5) New onset of congestive heart failure Code(s): I50.9 - HEART FAILURE, UNSPECIFIED Status: Acute (6) DM2 (diabetes mellitus, type 2) Status: Chronic (7) History of CVA (cerebrovascular accident) Code(s): Z86.73 - PRSNL HX OF TIA (TIA), AND CEREB INFRC W/O RESID DEFICITS Status: Chronic - Plan Plan: 64 yo female presents with 3 day history of SOB. She has known HTN and CKD3 and a history of previous non-compliance. HTN Emergency - s/p 3x sl nitro, hydralazine, lasix in the ER. BP remains elevated. - Cardene drip stopped. Coreg, hydralazine, nifedipine initiated. - Cardiology consulted. Appreciate recs. Coreg 25mg BID, Nifedipine 60mg BID, and lasix 40 IV daily. - Pulm consulted, appreciate recs. Signed off. - Nephro consulted. Changed from metoprolol to coreg. Appreciate recommendations. Acute Hypoxic Respiratory Failure New O2 requirement and supplementation as needed. Likely 2/2 to above. - wean O2 as tolerated. - daily lasix. CHF, new onset BNP 1473 on admission. CHRISTAL in 2018 with no CHF. s/p 40 mg IV Lasix with no urine output. - Will place west to keep strict I&Os. Fluid restrict to 1200 mL daily. Urine output improved over last 24 hours, however, + fluid balance. - Echo today showing diastolic dysfunction. Normal EF. - Will continue home medications as appropriate - Cardiology consulted. Appreciate recs. SHARLENE on CKD3 Baseline 1.2 at primary [employer], Dr. Henriquez. Creatinine 3.58 on admission. - Nephro consulted, no need for dialysis at this time. Lasix okay for diuresis as needed. Will replete electrolytes as necessary and monitor closely. - Renin/Fco pending Hypokalemia - Will replace and continue to monitor in setting of adding daily lasix. Renin/ fco pending. Elevated troponin -Trop 0.093, likely due to fluid overload and kidney disease. EKG NSR, no events on tele. IDDM2 - SS, resume glargine 10u qAM. ACHS accuchecks. Hx of Stroke Residual dysphagia. - Continue home ASA Code: Full PCP: SARAHY Topete Ppx: Heparin Disposition: Pending clinical course. Pt not on O2 at home. When weaned from O2 and BP controlled, may consider d/c home.
[2019-09-02] MEDS: Potassium Chloride 20 MEQ TAB PO SCH (08:36)
[2019-09-02] MEDS: Carvedilol 25 MG TAB PO SCH ×2 (08:36→16:00)
[2019-09-02] MEDS: Aspirin Chewable 81 MG TAB PO SCH (08:37)
[2019-09-02] MEDS: Heparin 5,000 UNITS/ML VIAL SC SCH ×3 (08:37→20:48)
[2019-09-02] MEDS: Furosemide 40 MG/4 ML VIAL SLOW IVP SCH (08:37)
[2019-09-02] MEDS: Nicotine 21 MG PATCH TD SCH (08:38)
[2019-09-02] MEDS: NIFEdipine XL 30 MG TAB PO SCH ×2 (08:38→20:47)
[2019-09-02] MEDS: Insulin Glargine 10 UNITS in Pre-Filled Syringe 1 EACH SC SCH (08:38)
--- NOTE | 2019-09-02 12:40 | RAD ---
CHEST 1 VIEW: Date: 09/02/19 HISTORY: Congestive heart failure. COMPARISON: 08/30/19. FINDINGS: Bilateral vascular congestion with some patchy interstitial and alveolar nodular parenchymal changes bilaterally, concerning for pulmonary edema. Slight costophrenic angle blunting. No significant cardi omegaly. IMPRESSION: Stable vascular congestion and minimal interstitial and alveolar edema. Continue short-term follow-up . POS: EBONIE
[2019-09-02 12:45] LABS: Hemoglobin A1c 5.6 % (4.0-6.0)
--- NOTE | 2019-09-02 12:45 | PRG ---
DATE OF SERVICE: 09/02/2019 SUBJECTIVE: Patient was seen and examined at bedside and overnight events noted. Patient denies any shortness of breath or chest pain or palpitation. No history of nausea or vomiting or diarrhea or fever or chills or cramps. OBJECTIVE: GENERAL: This is a well-built female, in no apparent distress. VITAL SIGNS: Temperature . Heart rate 77. Respiratory rate 18. Blood pressure . HEENT: Atraumatic, normocephalic. Oral mucosa is moist NECK: Supple. CARDIOVASCULAR: S1, S2 heard. Rate and rhythm regular. RESPIRATORY: Clear to auscultation. GASTROINTESTINAL: Abdomen is soft. MUSCULOSKELETAL: No tenderness. No edema. DERMATOLOGIC: No skin rash. NEUROLOGIC: Alert and awake and oriented X3. No focal neurologic deficits. Moving all the extremities. PSYCHIATRIC: Mood and affect normal. LABORATORY DATA: Potassium 3.4, BUN is 41, and creatinine is 3.7. ASSESSMENT: 1. Acute kidney injury on chronic kidney disease, stage 4. Renal function is stable. Urine output is improving, so monitor. 2. Hypokalemia, monitor. 3. Fluid overload, stable. 4. Hypomagnesemia. 5. Hypertension. 6. Anemia of chronic disease. 7. Hypertensive emergency. PLAN: Recommend cautious use of Lasix, seems like her urine output is better with the Lasix. Follow closely. Follow electrolytes and replace and monitor renal function. No acute indication for dialysis. Job ID: [id number]
[2019-09-02] MEDS: HumaLOG 300 UNITS/3 ML VIAL SC PRN (13:21)
[2019-09-03 05:10] LABS: Anion Gap 14 mmol/L (10-20); BUN (Urea Nitrogen) 44 mg/dL (9.8-20.1); Calc. Creatinine Clearance 18 mL/min (70-130); Calcium 8.3 mg/dL (7.8-10.44); Carbon Dioxide 21 mmol/L (23-31); Chloride 109 mmol/L (98-107); Estimated GFR-MDRD 14; Glucose 107 mg/dL (80-115); Potassium 3.7 mmol/L (3.5-5.1); Sodium 140 mmol/L (136-145)
--- NOTE | 2019-09-03 05:50 | PDOC.FM ---
- Subjective Subjective: She says she is not having any SOB this morning. She is eating and sleeping well. - Objective MAR Reviewed: Yes Vital Signs & Weight: Vital Signs (12 hours) Temp Pulse Resp BP BP Pulse Ox 09/03/19 04:12 98.2 F 81 18 172/81 H 92 L 09/03/19 00:01 97.6 F 09/02/19 20:47 62 109/58 L 09/02/19 19:40 97.5 F L 62 18 145/71 H 95 Weight Weight 78.245 kg Most Recent Monitor Data Heart Rate from ECG 69 NIBP 171/78 NIBP BP-Mean 109 Respiration from ECG 23 SpO2 97 I&O: 09/01/19 09/02/19 09/03/19 06:59 06:59 06:59 Intake Total 1140 1250 1000 Output Total 750 1120 350 Balance 390 130 650 Result Diagrams: 08/31/19 06:50 09/03/19 04:36 Phys Exam - Physical Examination Constitutional: NAD HEENT: PERRLA, moist MMs Neck: supple, full ROM Respiratory: clear to auscultation bilateral Cardiovascular: RRR, no significant murmur Gastrointestinal: soft, non-tender, positive bowel sounds Musculoskeletal: no edema, pulses present Neurological: moves all 4 limbs Lymphatic: no nodes Psychiatric: normal affect Skin: no rash, normal turgor Dx/Plan (1) Acute kidney injury superimposed on CKD Code(s): N17.9 - ACUTE KIDNEY FAILURE, UNSPECIFIED; N18.9 - CHRONIC KIDNEY DISEASE, UNSPECIFIED Status: Acute (2) Acute respiratory failure with hypoxia Code(s): J96.01 - ACUTE RESPIRATORY FAILURE WITH HYPOXIA Status: Acute (3) Elevated troponin Code(s): R79.89 - OTHER SPECIFIED ABNORMAL FINDINGS OF BLOOD CHEMISTRY Status : Acute (4) Hypertensive emergency Code(s): I16.1 - HYPERTENSIVE EMERGENCY Status: Acute (5) Hypokalemia Code(s): E87.6 - HYPOKALEMIA Status: Acute (6) DM2 (diabetes mellitus, type 2) Status: Chronic (7) History of CVA (cerebrovascular accident) Code(s): Z86.73 - PRSNL HX OF TIA (TIA), AND CEREB INFRC W/O RESID DEFICITS Status: Chronic - Plan Plan: 64 yo female presents with 3 day history of SOB. She has known HTN and CKD3 and a history of previous non-compliance. 1. HTN Emergency * s/p 3x sl nitro, hydralazine, lasix in the ER. BP remains elevated. * Cardene drip stopped. Coreg, hydralazine, nifedipine initiated. * Cardiology consulted. Appreciate recs. Coreg 25mg BID, Nifedipine 60mg BID, and lasix 40 IV daily. * Pulm consulted, appreciate recs. Signed off. * Nephro consulted. Changed from metoprolol to coreg. Appreciate recommendations. 2. Acute Hypoxic Respiratory Failure New O2 requirement and supplementation as needed. Likely 2/2 to above. * Wean O2 as tolerated. Currently not requiring O2 @ 92% * Daily lasix 3. CHF, new onset BNP 1473 on admission. CHRISTAL in 2018 with no CHF. s/p 40 mg IV Lasix with no urine output. * Placed west to keep strict I&Os. Fluid restrict to 1200 mL daily. Urine output improved over last 24 hours, however, + fluid balance. * Echo showed diastolic dysfunction. Normal EF. * Will continue home medications as appropriate * Cardiology consulted. Appreciate recs. 4. SHARLENE on CKD3 Baseline 1.2 at primary [employer], Dr. Henriquez. Creatinine 3.58 on admission. * Nephro consulted, no need for dialysis at this time. * Lasix okay for diuresis as needed. Will see what nephrology's recommendation is this morning. * Will replete electrolytes as necessary and monitor closely. * Renin/Fco pending 5. Hypokalemia, Resolved * Will replace and continue to monitor. * Renin/fco pending. 6. Elevated troponin * Trop 0.093, likely due to fluid overload and kidney disease * EKG NSR, no events on tele. 7. IDDM2 * SSI * Resume glargine 10u qAM * ACHS accuchecks. 8. Hx of Stroke Residual dysphagia. * Continue home ASA Code: Full PCP: SARAHY Topete Ppx: Heparin Disposition: Pending clinical course. Pt not on O2 at home. When weaned from O2 and BP controlled, may consider d/c home. Addendum - Attending - Attending Attestation Date/Time: 09/03/19 0067 I personally evaluated the patient and discussed the management with the team. I agree with the History, Examination, Assessment and Plan documented above with any addition or exceptions noted below. Patient without cp/sob/n/v/f/c. She is overall feeling much better than admission. Await further input from nephrology, although think her prognosis from a renal perspective is guarded.
[2019-09-03] MEDS: Insulin Glargine 10 UNITS in Pre-Filled Syringe 1 EACH SC SCH (08:35)
[2019-09-03] MEDS: NIFEdipine XL 30 MG TAB PO SCH ×2 (08:35→20:12)
[2019-09-03] MEDS: Heparin 5,000 UNITS/ML VIAL SC SCH ×3 (08:35→20:11)
[2019-09-03] MEDS: Potassium Chloride 20 MEQ TAB PO SCH (08:35)
[2019-09-03] MEDS: Nicotine 21 MG PATCH TD SCH (08:36)
[2019-09-03] MEDS: Carvedilol 25 MG TAB PO SCH ×2 (08:36→16:52)
[2019-09-03] MEDS: Furosemide 40 MG/4 ML VIAL SLOW IVP SCH (08:36)
[2019-09-03] MEDS: Aspirin Chewable 81 MG TAB PO SCH (08:36)
--- NOTE | 2019-09-03 11:10 | PRG ---
DATE OF SERVICE: 09/03/2019 SUBJECTIVE: This is a 64-year-old female being seen for acute kidney injury. The patient denies any nausea, vomiting, or chest pain. OBJECTIVE: See above. GENERAL: Patient is awake and alert. VITAL SIGNS: Pulse 65, breathing 16, blood pressure was 160/69. GENERAL APPEARANCE AND MENTAL STATUS: Fair. HEAD/NECK: Normocephalic. Atraumatic. EYES: EOMI. No deformity. EARS: Clear. No ulcers. NOSE: Intact. No lesions. MOUTH: Clear. No discharge. THROAT: Clear. No exudate. LUNGS: Clear. No crackles. CARDIAC: S1, S2. No rub. ABDOMEN: Benign. Bowel sounds positive. GENITALIA/RECTUM: Ramírez absent. BACK/EXTREMITIES: Edema 0+. NEUROLOGICAL: Alert and motor intact. SKIN: LYMPHATICS: LABORATORY DATA: Reviewed. ASSESSMENT AND PLAN: 1. Acute kidney disease stage 4 with mild increase in creatinine. We will follow renal function. 2. Hypertension, stable. 3. Anemia, stable. 4. Medication based on GFR appropriate. No indication for dialysis. The patient currently is approaching CKD stage 5, but will need very close followup. No urgent indication for dialysis. Job ID: [id number]
--- NOTE | 2019-09-03 12:30 | PDOC.CPN ---
- Subjective Date: 09/03/19 Time: 08:30 Interval history: The pt seen and examined. No overnight events. No cardiac complaints. - Objective Allergies/Adverse Reactions: Allergies Allergy/AdvReac Type Severity Reaction Status Date / Time No Known Allergies Allergy Verified 08/30/19 06:23 Visit Medications: Current Medications Acetaminophen (Tylenol) 650 mg PO Q4H PRN PRN Reason: Headache/Fever/Mild Pain (1-3) Last Admin: 08/31/19 20:09 Dose: 650 mg Aspirin (Aspirin Chewable) 81 mg PO DAILY [facility] Last Admin: 09/03/19 08:36 Dose: 81 mg Carvedilol (Coreg) 25 mg PO BID-[facility] Last Admin: 09/03/19 08:36 Dose: 25 mg Dextrose/Water (Dextrose 50%) 25 gm SLOW IVP PRN PRN PRN Reason: Hypoglycemia Famotidine (Pepcid) 20 mg PO DAILY PRN PRN Reason: Indigestion Furosemide (Lasix) 40 mg SLOW IVP DAILY [facility] Last Admin: 09/03/19 08:36 Dose: 40 mg Glucagon (Glucagon) 1 mg IM PRN PRN PRN Reason: Hypoglycemia Heparin Sodium (Porcine) (Heparin) 5,000 units SC TID [facility] Last Admin: 09/03/19 08:35 Dose: 5,000 units Hydralazine HCl (Apresoline) 20 mg SLOW IVP Q15MIN PRN PRN Reason: SBP Greater Than 180 Last Admin: 09/01/19 15:02 Dose: 20 mg Dextrose/Water (D5w) 1,000 mls @ 0 mls/hr IV .Q0M PRN PRN Reason: Hypoglycemia Insulin Glargine 10 units/ (Miscellaneous Medication) 0.1 mls @ 0 mls/[facility] [place] Last Admin: 09/03/19 08:35 Dose: 0.1 mls Insulin Human Lispro (Humalog) 0 units SC .MILD SLIDING SCALE PRN PRN Reason: Mild Correctional Scale Last Admin: 09/02/19 13:21 Dose: 5 unit Insulin Human Lispro (Humalog) 0 units SC .BEDTIME SLIDING SC PRN PRN Reason: Bedtime Correctional Scale Labetalol HCl (Normodyne) 20 mg SLOW IVP Q10MIN PRN PRN Reason: SBP Greater Than 180 Nicotine (Nicoderm Patch) 21 mg TD DAILY [facility] Last Admin: 09/03/19 08:36 Dose: 21 mg Nifedipine (Procardia Xl) 60 mg PO BID [facility] Last Admin: 09/03/19 08:35 Dose: 60 mg Ondansetron HCl (Zofran Odt) 4 mg PO Q6H PRN PRN Reason: Nausea/Vomiting Potassium Chloride (K-Dur) 40 meq PO QAM-WM [facility] Last Admin: 09/03/19 08:35 Dose: 40 meq Vital Signs & Weight: Vital Signs Temp Pulse Resp BP BP Pulse Ox 09/03/19 09:29 98.0 F 81 16 160/69 H 93 L 09/03/19 08:35 81 09/03/19 07:42 92 L 09/03/19 04:12 98.2 F 81 18 172/81 H 92 L Weight 173 lb 6.4 oz - Physical Exam General: alert & oriented x3 HEENT: mucus membranes moist Neck: supple neck Cardiac: regular rate and rhythm, S1/S2 Lungs: decreased breath sounds Neuro: cranial nerve 2-12 intact - Labs Result Diagrams: 08/31/19 06:50 09/03/19 04:36 Troponin/CKMB CK-MB (CK-2) 3.2 ng/mL (0-6.6) 08/30/19 01:08 Troponin I 0.125 ng/mL (< 0.028) H 08/30/19 07:23 - Telemetry Sinus rhythms and dysrhythmias: sinus rhythm - Assessment/Plan Assessment/Plan: 1. HTN urgency - will start Isosorbide 10mg BID from today; 2. Acute on chronic Diastolic HF - On Coreg and Lasix; not on HOLLY/ARB due to hx of CKD 3. SHARLENE on CKD stage 4 - managed by line therapist 4. IDDM2 - managed by PCP 5. hx of CVA 6. current smoker - strongly recommend smoking cessation to the pt. NAOMI reviewed * Echo on 08/30/2019 with EF EF60-65%, mild LVH, trivial pericardial effusion, trace MR, and mild TR Pt. seen and eval. by me. I agree with the A/P by the SENIOR SALES CONSULTANT. Chest with bibasilar rales. Occasional coarse cough. RRR. Cardiac status is stable. grecia
[2019-09-03] MEDS ORDERED: Isosorbide Dinitrate 20 MG TAB PO SCH ×2 (13:15→21:00)
[2019-09-04 04:50] LABS: Anion Gap 12 mmol/L (10-20); BUN (Urea Nitrogen) 45 mg/dL (9.8-20.1); Calc. Creatinine Clearance 18 mL/min (70-130); Calcium 8.3 mg/dL (7.8-10.44); Carbon Dioxide 21 mmol/L (23-31); Chloride 110 mmol/L (98-107); Estimated GFR-MDRD 15; Glucose 75 mg/dL (80-115); Potassium 3.9 mmol/L (3.5-5.1); Sodium 139 mmol/L (136-145)
--- NOTE | 2019-09-04 06:08 | PDOC.FM ---
- Subjective Subjective: Pt is doing well this morning. She is eating and drinking well. She is not SOB. O2 was on at 1 1/2 L when I was in the room decreased to 1L. - Objective MAR Reviewed: Yes Vital Signs & Weight: Vital Signs (12 hours) Temp Pulse Resp BP BP Pulse Ox 09/04/19 04:09 97.6 F 77 18 148/91 H 92 L 09/03/19 20:12 79 167/84 H 09/03/19 20:07 95 Weight Weight 79.832 kg Most Recent Monitor Data Heart Rate from ECG 69 NIBP 171/78 NIBP BP-Mean 109 Respiration from ECG 23 SpO2 97 I&O: 09/02/19 09/03/19 09/04/19 06:59 06:59 06:59 Intake Total 1250 1240 1050 Output Total 4353 698 7064 Balance 130 440 -750 Result Diagrams: 08/31/19 06:50 09/04/19 04:20 Phys Exam - Physical Examination Constitutional: NAD HEENT: moist MMs, sclera anicteric Neck: supple, full ROM Respiratory: clear to auscultation bilateral Cardiovascular: no significant murmur Gastrointestinal: soft, non-tender, positive bowel sounds Musculoskeletal: pulses present Neurological: moves all 4 limbs Lymphatic: no nodes Psychiatric: normal affect Skin: no rash Dx/Plan (1) Acute kidney injury superimposed on CKD Code(s): N17.9 - ACUTE KIDNEY FAILURE, UNSPECIFIED; N18.9 - CHRONIC KIDNEY DISEASE, UNSPECIFIED Status: Acute (2) Acute respiratory failure with hypoxia Code(s): J96.01 - ACUTE RESPIRATORY FAILURE WITH HYPOXIA Status: Acute (3) Elevated troponin Code(s): R79.89 - OTHER SPECIFIED ABNORMAL FINDINGS OF BLOOD CHEMISTRY Status : Acute (4) Hypertensive emergency Code(s): I16.1 - HYPERTENSIVE EMERGENCY Status: Acute (5) Hypokalemia Code(s): E87.6 - HYPOKALEMIA Status: Acute (6) DM2 (diabetes mellitus, type 2) Status: Chronic (7) History of CVA (cerebrovascular accident) Code(s): Z86.73 - PRSNL HX OF TIA (TIA), AND CEREB INFRC W/O RESID DEFICITS Status: Chronic - Plan Plan: 64 yo female presents with 3 day history of SOB. She has known HTN and CKD3 and a history of previous non-compliance. 1. HTN Emergency * s/p 3x sl nitro, hydralazine, lasix in the ER. BP remains elevated. * Cardene drip stopped. Coreg, hydralazine, nifedipine initiated. Isosorbide started last night. * Cardiology consulted. Appreciate recs. Coreg 25mg BID, Nifedipine 60mg BID, Isosorbide 10 mg BID, and lasix 40 IV daily. * Pulm consulted, appreciate recs. Signed off. * Nephro consulted. Changed from metoprolol to coreg. Appreciate recommendations. 2. Acute Hypoxic Respiratory Failure New O2 requirement and supplementation as needed. Likely 2/2 to above. * Wean O2 as tolerated. On 1 and 1/2 L on exam. Will get the nurse to cut O2 off and check sats off O2. * Daily lasix 3. CHF, new onset BNP 1473 on admission. CHRISTAL in 2018 with no CHF. s/p 40 mg IV Lasix with no urine output. * Placed west to keep strict I&Os. Fluid restrict to 1200 mL daily. Urine output improved over last 24 hours, however, + fluid balance. * Echo showed diastolic dysfunction. Normal EF. * Will continue home medications as appropriate * Cardiology consulted. Appreciate recs. 4. SHARLENE on CKD4 Baseline 1.2 at primary [facility], Dr. Henriquez. Creatinine 3.58 on admission. * Nephro consulted, no need for dialysis at this time. Approaching CKD Stage 5, needs close follow-up. * Lasix okay for diuresis as needed. * Will replete electrolytes as necessary and monitor closely. * Renin/Fco pending 5. Hypokalemia, Resolved * Will replace and continue to monitor. 6. Elevated troponin * Trop 0.093 > 0.125, likely due to fluid overload and kidney disease * EKG NSR, no events on tele. * Currently being seen by cardiology 7. IDDM2 * SSI * Resume glargine 10u qAM * ACHS accuchecks. 8. Hx of Stroke Residual dysphagia. * Continue home ASA Code: Full PCP: SARAHY Topete Ppx: Heparin Disposition: Pending clinical course. Pt not on O2 at home. When weaned from O2 and BP controlled, may consider d/c home. Checking off O2 this morning. Addendum - Attending - Attending Attestation Date/Time: 09/04/19 2443 I personally evaluated the patient and discussed the management with the team. I agree with the History, Examination, Assessment and Plan documented above with any addition or exceptions noted below. She is doing well, denies cp/sob/n/v/f/c. On exam she still has rales. Her creatinine is stable. I believe this is likely her new baseline and I believe she is high risk for dialysis in the future.
--- NOTE | 2019-09-04 08:44 | PDOC.CPN ---
- Subjective Date: 09/04/19 Time: 08:46 Interval history: The pt seen and examined. No overnight events. No cardiac complaints. - Objective Allergies/Adverse Reactions: Allergies Allergy/AdvReac Type Severity Reaction Status Date / Time No Known Allergies Allergy Verified 08/30/19 06:23 Visit Medications: Current Medications Acetaminophen (Tylenol) 650 mg PO Q4H PRN PRN Reason: Headache/Fever/Mild Pain (1-3) Last Admin: 08/31/19 20:09 Dose: 650 mg Aspirin (Aspirin Chewable) 81 mg PO DAILY [facility] Last Admin: 09/03/19 08:36 Dose: 81 mg Carvedilol (Coreg) 25 mg PO BID-[facility] Last Admin: 09/03/19 16:52 Dose: 25 mg Dextrose/Water (Dextrose 50%) 25 gm SLOW IVP PRN PRN PRN Reason: Hypoglycemia Famotidine (Pepcid) 20 mg PO DAILY PRN PRN Reason: Indigestion Furosemide (Lasix) 40 mg SLOW IVP DAILY [facility] Last Admin: 09/03/19 08:36 Dose: 40 mg Glucagon (Glucagon) 1 mg IM PRN PRN PRN Reason: Hypoglycemia Heparin Sodium (Porcine) (Heparin) 5,000 units SC TID [facility] Last Admin: 09/03/19 20:11 Dose: 5,000 units Hydralazine HCl (Apresoline) 20 mg SLOW IVP Q15MIN PRN PRN Reason: SBP Greater Than 180 Last Admin: 09/01/19 15:02 Dose: 20 mg Dextrose/Water (D5w) 1,000 mls @ 0 mls/hr IV .Q0M PRN PRN Reason: Hypoglycemia Insulin Glargine 10 units/ (Miscellaneous Medication) 0.1 mls @ 0 mls/hr SC QAM [facility] Last Admin: 09/03/19 08:35 Dose: 0.1 mls Insulin Human Lispro (Humalog) 0 units SC .MILD SLIDING SCALE PRN PRN Reason: Mild Correctional Scale Last Admin: 09/02/19 13:21 Dose: 5 unit Insulin Human Lispro (Humalog) 0 units SC .BEDTIME SLIDING SC PRN PRN Reason: Bedtime Correctional Scale Last Admin: 09/03/19 21:55 Dose: 2 unit Isosorbide Dinitrate (Isordil) 10 mg PO BID [facility] Last Admin: 09/03/19 20:12 Dose: 10 mg Labetalol HCl (Normodyne) 20 mg SLOW IVP Q10MIN PRN PRN Reason: SBP Greater Than 180 Nicotine (Nicoderm Patch) 21 mg TD DAILY [facility] Last Admin: 09/03/19 08:36 Dose: 21 mg Nifedipine (Procardia Xl) 60 mg PO BID [facility] Last Admin: 09/03/19 20:12 Dose: 60 mg Ondansetron HCl (Zofran Odt) 4 mg PO Q6H PRN PRN Reason: Nausea/Vomiting Potassium Chloride (K-Dur) 40 meq PO QAM-WM [facility] Last Admin: 09/03/19 08:35 Dose: 40 meq Vital Signs & Weight: Vital Signs Temp Pulse Resp BP Pulse Ox 09/04/19 04:09 97.6 F 77 18 148/91 H 92 L Weight 176 lb - Physical Exam General: alert & oriented x3 HEENT: mucus membranes moist Neck: supple neck Cardiac: regular rate and rhythm, S1/S2 Lungs: decreased breath sounds Neuro: cranial nerve 2-12 intact Abdomen: unremarkable - Labs Result Diagrams: 08/31/19 06:50 09/04/19 04:20 Troponin/CKMB CK-MB (CK-2) 3.2 ng/mL (0-6.6) 08/30/19 01:08 Troponin I 0.125 ng/mL (< 0.028) H 08/30/19 07:23 - Telemetry Sinus rhythms and dysrhythmias: sinus rhythm - Assessment/Plan Assessment/Plan: 1. HTN urgency - will increase Isosorbide from 10mg to 20mg BID from today; 2. Acute on chronic Diastolic HF - On Coreg and Lasix; not on HOLLY/ARB due to hx of CKD 3. SHARLENE on CKD stage 4 - managed by Dr Henriquez 4. IDDM2 - managed by PCP 5. hx of CVA 6. current smoker - strongly recommend smoking cessation to the pt. NAOMI reviewed * Echo on 08/30/2019 with EF EF60-65%, mild LVH, trivial pericardial effusion, trace MR, and mild TR Pt. seen and eval. by me.I agree with the A/P by the MANAGER ROUTE. Chest : mild wheeze. RRR, no edema.
[2019-09-04] MEDS: Heparin 5,000 UNITS/ML VIAL SC SCH ×3 (09:36→22:06)
[2019-09-04] MEDS: Furosemide 40 MG/4 ML VIAL SLOW IVP SCH (09:36)
[2019-09-04] MEDS: NIFEdipine XL 30 MG TAB PO SCH ×2 (09:36→22:05)
[2019-09-04] MEDS: Insulin Glargine 10 UNITS in Pre-Filled Syringe 1 EACH SC SCH (09:36)
[2019-09-04] MEDS: Potassium Chloride 20 MEQ TAB PO SCH (09:37)
[2019-09-04] MEDS: Aspirin Chewable 81 MG TAB PO SCH (09:37)
[2019-09-04] MEDS: Isosorbide Dinitrate 20 MG TAB PO SCH ×2 (09:37→22:06)
[2019-09-04] MEDS: Carvedilol 25 MG TAB PO SCH ×2 (09:37→17:26)
[2019-09-04] MEDS: Nicotine 21 MG PATCH TD SCH (09:38)
--- NOTE | 2019-09-04 10:31 | PRG ---
DATE OF SERVICE: 09/04/2019 SUBJECTIVE: A 64-year-old female, being seen for acute kidney injury. The patient denies any nausea, vomiting, or chest pain. OBJECTIVE: CONSTITUTIONAL: The patient is awake and alert. VITAL SIGNS: Afebrile. Pulse 84, breathing 16, blood pressure 142/91. GENERAL APPEARANCE AND MENTAL STATUS: Fair. HEAD/NECK: Normocephalic. Atraumatic. EYES: EOMI. No deformity. EARS: Clear. No ulcers. NOSE: Intact. No lesions. MOUTH: Clear. No discharge. THROAT: Clear. No exudate. LUNGS: Clear. No crackles. CARDIAC: S1, S2. No rub. ABDOMEN: Benign. Bowel sounds positive. GENITALIA/RECTUM: Ramírez absent. BACK/EXTREMITIES: Edema 0+. NEUROLOGICAL: Alert and motor intact. SKIN: LYMPHATICS: LABORATORY DATA: Reviewed. ASSESSMENT AND PLAN: 1. Stage 4 chronic kidney disease, stable. 2. Hypertension, stable. 3. Anemia, stable. 4. Medication based on GFR, appropriate. No indication for dialysis. Job ID: [id number]
[2019-09-04] MEDS: Furosemide 40 MG TAB PO SCH (15:45)
--- NOTE | 2019-09-05 05:58 | PDOC.FM ---
- Subjective Subjective: She is doing well. She has no SOB. She has negative fluid balance. No other complaints. Pt spoke with Dr. Nunez and she said she would be good to go today. - Objective MAR Reviewed: Yes Vital Signs & Weight: Vital Signs (12 hours) Temp Pulse Resp BP BP BP Pulse Ox 09/05/19 03:15 99.0 F 80 18 172/81 H 93 L 09/04/19 22:05 84 176/83 H 09/04/19 20:00 98.2 F 84 20 176/83 H 93 L Weight Weight 79.832 kg Most Recent Monitor Data Heart Rate from ECG 69 NIBP 171/78 NIBP BP-Mean 109 Respiration from ECG 23 SpO2 97 I&O: 09/03/19 09/04/19 09/05/19 06:59 06:59 06:59 Intake Total 1240 1050 1000 Output Total 800 1800 1300 Balance 824 -343 -588 Result Diagrams: 08/31/19 06:50 09/05/19 08:55 Phys Exam - Physical Examination Constitutional: NAD HEENT: moist MMs, sclera anicteric Neck: supple, full ROM Respiratory: clear to auscultation bilateral Cardiovascular: RRR, no significant murmur Gastrointestinal: soft, non-tender, positive bowel sounds Musculoskeletal: no edema, pulses present Neurological: moves all 4 limbs Lymphatic: no nodes Psychiatric: normal affect Skin: no rash Dx/Plan (1) Acute kidney injury superimposed on CKD Code(s): N17.9 - ACUTE KIDNEY FAILURE, UNSPECIFIED; N18.9 - CHRONIC KIDNEY DISEASE, UNSPECIFIED Status: Acute (2) Acute respiratory failure with hypoxia Code(s): J96.01 - ACUTE RESPIRATORY FAILURE WITH HYPOXIA Status: Acute (3) Elevated troponin Code(s): R79.89 - OTHER SPECIFIED ABNORMAL FINDINGS OF BLOOD CHEMISTRY Status : Acute (4) Hypertensive emergency Code(s): I16.1 - HYPERTENSIVE EMERGENCY Status: Acute (5) Hypokalemia Code(s): E87.6 - HYPOKALEMIA Status: Acute (6) DM2 (diabetes mellitus, type 2) Status: Chronic (7) History of CVA (cerebrovascular accident) Code(s): Z86.73 - PRSNL HX OF TIA (TIA), AND CEREB INFRC W/O RESID DEFICITS Status: Chronic - Plan Plan: 64 yo female presents with 3 day history of SOB. She has known HTN and CKD3 and a history of previous non-compliance. 1. HTN Emergency * s/p 3x sl nitro, hydralazine, lasix in the ER. BP remains elevated. * Cardene drip stopped. Coreg, hydralazine, nifedipine initiated. * Cardiology consulted. Appreciate recs. Coreg 25mg BID, Nifedipine 60mg BID, Isosorbide 40 mg BID, and lasix 40 IV daily. * Pulm consulted, appreciate recs. Signed off. * Nephro consulted. Changed from metoprolol to coreg. Appreciate recommendations. Clear to go from there standpoint with a follow-up in [address] Crawford. 2. Acute Hypoxic Respiratory Failure New O2 requirement and supplementation as needed. Likely 2/2 to above. * Wean O2 as tolerated. On 1L on exam. Will get the nurse to cut O2 off and check sats off O2. * Daily lasix 3. CHF, new onset BNP 1473 on admission. CHRISTAL in 2018 with no CHF. s/p 40 mg IV Lasix with no urine output. * Ramírez removed yesterday. She is still exhibiting a negative fluid balance. * Echo showed diastolic dysfunction. Normal EF. * Will continue home medications as appropriate * Cardiology consulted. Appreciate recs. 4. SHARLENE on CKD4 Baseline 1.2 at primary [facility] [facility], Dr. Henriquez. Creatinine 3.58 on admission. * Nephro consulted, no need for dialysis at this time. Approaching CKD Stage 5, needs close follow-up. * Lasix okay for diuresis as needed. * Will replete electrolytes as necessary and monitor closely. * Renin/Fco pending 5. Hypokalemia, Resolved * Will replace and continue to monitor. 6. Elevated troponin * Trop 0.093 > 0.125, likely due to fluid overload and kidney disease * EKG NSR, no events on tele. * Currently being seen by cardiology 7. IDDM2 * SSI * Resume glargine 10u qAM * ACHS accuchecks. 8. Hx of Stroke Residual dysphagia. * Continue home ASA Code: Full PCP: SARAHY Topete Ppx: Heparin Disposition: Pending clinical course. Pt not on O2 at home. When weaned from O2 and BP controlled, may consider d/c home. Checking off O2 this morning. Addendum - Attending - Attending Attestation Date/Time: 09/05/19 1531 I personally evaluated the patient and discussed the management with the team. I agree with the History, Examination, Assessment and Plan documented above with any addition or exceptions noted below. Patient doing well without cp/sob/n/v/f/c. Her lungs have trace crackles. She is wanting to go home and I feel stable with high risk for future dialysis. We discussed return warnings. Follow up with renal within 1 week and with me within 2.
[2019-09-05] MEDS ORDERED: Isosorbide Dinitrate 20 MG TAB PO SCH (09:00)
[2019-09-05] MEDS: Insulin Glargine 10 UNITS in Pre-Filled Syringe 1 EACH SC SCH (09:19)
[2019-09-05] MEDS: Aspirin Chewable 81 MG TAB PO SCH (09:20)
[2019-09-05] MEDS: Heparin 5,000 UNITS/ML VIAL SC SCH ×2 (09:20→14:56)
[2019-09-05] MEDS: Furosemide 40 MG TAB PO SCH ×2 (09:20→14:57)
[2019-09-05] MEDS: NIFEdipine XL 30 MG TAB PO SCH (09:20)
[2019-09-05] MEDS: Carvedilol 25 MG TAB PO SCH (09:20)
[2019-09-05] MEDS: Potassium Chloride 20 MEQ TAB PO SCH (09:20)
[2019-09-05] MEDS: Nicotine 21 MG PATCH TD SCH (09:21)
[2019-09-05 09:35] LABS: Anion Gap 14 mmol/L (10-20); BUN (Urea Nitrogen) 38 mg/dL (9.8-20.1); Calc. Creatinine Clearance 20 mL/min (70-130); Calcium 8.2 mg/dL (7.8-10.44); Carbon Dioxide 20 mmol/L (23-31); Chloride 109 mmol/L (98-107); Estimated GFR-MDRD 15; Glucose 155 mg/dL (80-115); Potassium 3.8 mmol/L (3.5-5.1); Sodium 139 mmol/L (136-145)
[2019-09-05 12:20] VITALS: BP 141/69; TEMP 98.3
--- NOTE | 2019-09-05 12:44 | PDOC.CPN ---
- Subjective Date: 09/05/19 Time: 08:30 Interval history: The pt seen and examined. No overnight events. No cardiac complaints. - Objective Allergies/Adverse Reactions: Allergies Allergy/AdvReac Type Severity Reaction Status Date / Time No Known Allergies Allergy Verified 08/30/19 06:23 Visit Medications: Current Medications Acetaminophen (Tylenol) 650 mg PO Q4H PRN PRN Reason: Headache/Fever/Mild Pain (1-3) Last Admin: 08/31/19 20:09 Dose: 650 mg Aspirin (Aspirin Chewable) 81 mg PO DAILY [facility] Last Admin: 09/05/19 09:20 Dose: 81 mg Carvedilol (Coreg) 25 mg PO BID-[facility] Last Admin: 09/05/19 09:20 Dose: 25 mg Dextrose/Water (Dextrose 50%) 25 gm SLOW IVP PRN PRN PRN Reason: Hypoglycemia Famotidine (Pepcid) 20 mg PO DAILY PRN PRN Reason: Indigestion Furosemide (Lasix) 40 mg PO 0900,1400 [facility] Last Admin: 09/05/19 09:20 Dose: 40 mg Glucagon (Glucagon) 1 mg IM PRN PRN PRN Reason: Hypoglycemia Heparin Sodium (Porcine) (Heparin) 5,000 units SC TID [facility] Last Admin: 09/05/19 09:20 Dose: 5,000 units Hydralazine HCl (Apresoline) 20 mg SLOW IVP Q15MIN PRN PRN Reason: SBP Greater Than 180 Last Admin: 09/01/19 15:02 Dose: 20 mg Dextrose/Water (D5w) 1,000 mls @ 0 mls/hr IV .Q0M PRN PRN Reason: Hypoglycemia Insulin Glargine 10 units/ (Miscellaneous Medication) 0.1 mls @ 0 mls/hr SC QAM [facility] Last Admin: 09/05/19 09:19 Dose: 0.1 mls Insulin Human Lispro (Humalog) 0 units SC .MILD SLIDING SCALE PRN PRN Reason: Mild Correctional Scale Last Admin: 09/02/19 13:21 Dose: 5 unit Insulin Human Lispro (Humalog) 0 units SC .BEDTIME SLIDING SC PRN PRN Reason: Bedtime Correctional Scale Last Admin: 09/03/19 21:55 Dose: 2 unit Isosorbide Dinitrate (Isordil) 40 mg PO BID [facility] Last Admin: 09/05/19 09:20 Dose: 40 mg Labetalol HCl (Normodyne) 20 mg SLOW IVP Q10MIN PRN PRN Reason: SBP Greater Than 180 Nicotine (Nicoderm Patch) 21 mg TD DAILY [facility] Last Admin: 09/05/19 09:21 Dose: 21 mg Nifedipine (Procardia Xl) 60 mg PO BID [facility] Last Admin: 09/05/19 09:20 Dose: 60 mg Ondansetron HCl (Zofran Odt) 4 mg PO Q6H PRN PRN Reason: Nausea/Vomiting Potassium Chloride (K-Dur) 40 meq PO QAM-WM [facility] Last Admin: 09/05/19 09:20 Dose: 40 meq Vital Signs & Weight: Vital Signs Temp Pulse Resp BP BP Pulse Ox 09/05/19 11:45 98.3 F 72 16 141/69 H 98 09/05/19 09:20 83 163/78 H 09/05/19 08:00 98.1 F 85 20 163/78 H 93 L 09/05/19 07:31 93 L 09/05/19 03:15 99.0 F 80 18 172/81 H 93 L Weight 176 lb - Physical Exam General: alert & oriented x3 HEENT: mucus membranes moist Neck: supple neck Cardiac: regular rate and rhythm, S1/S2 Lungs: clear to auscultation - Labs Result Diagrams: 08/31/19 06:50 09/05/19 08:55 Troponin/CKMB CK-MB (CK-2) 3.2 ng/mL (0-6.6) 08/30/19 01:08 Troponin I 0.125 ng/mL (< 0.028) H 08/30/19 07:23 - Telemetry Sinus rhythms and dysrhythmias: sinus rhythm - Assessment/Plan Assessment/Plan: 1. HTN urgency - will increase Isosorbide from 20mg to 40mg BID from today; 2. Acute on chronic Diastolic HF - On Coreg and Lasix; not on HOLLY/ARB due to hx of CKD 3. SHARLENE on CKD stage 4 - managed by Dr Henriquez 4. IDDM2 - managed by PCP 5. hx of CVA 6. current smoker - strongly recommend smoking cessation to the pt. NAOMI reviewed * Echo on 08/30/2019 with EF EF60-65%, mild LVH, trivial pericardial effusion, trace MR, and mild TR Pt. seen and eval.by me.I agree with the A/P by the BUSINESS INTELLIGENCE DIRECTOR.Chest clear except for slight wheeze. RRR
--- NOTE | 2019-09-05 14:20 | PRG ---
DATE OF SERVICE: 09/05/2019 SUBJECTIVE: A 64-year-old female being seen for acute kidney injury. The patient denied any nausea, vomiting, or chest pain. OBJECTIVE: GENERAL: The patient is awake and alert. VITAL SIGNS: Afebrile, pulse 92, breathing 16, and blood pressure 141/69. GENERAL APPEARANCE AND MENTAL STATUS: Fair. HEAD/NECK: Normocephalic. Atraumatic. EYES: EOMI. No deformity. EARS: Clear. No ulcers. NOSE: Intact. No lesions. MOUTH: Clear. No discharge. THROAT: Clear. No exudate. LUNGS: Clear. No crackles. CARDIAC: S1, S2. No rub. ABDOMEN: Benign. Bowel sounds positive. GENITALIA/RECTUM: Ramírez absent. BACK/EXTREMITIES: Edema 0+. NEUROLOGICAL: Alert and motor intact. SKIN: LYMPHATICS: LABORATORY DATA: Reviewed. ASSESSMENT: 1. Stage 5 chronic kidney disease, stable. 2. Hypertension, stable. 3. Anemia, stable. 4. Medication based on GFR appropriate. No indication for dialysis. The patient can follow up as an outpatient. Job ID: [id number]
--- NOTE | 2019-09-06 01:27 | PQF ---
[employer] Substation Inspector Crystal Reports [facility] ViewerFANNIE,DAY SAIMA RICHTER [id number] [facility]261 [id number] CLINICAL DOCUMENTATION CLARIFICATION FORM: POST DISCHARGE Addendum to original discharge summary date: ____ Late entry note date: __ DATE: 09/06/19 ATTN:Saima Warner Please exercise your independent, professional judgment in responding to the clarification form. Clinical indicators are provided on the bottom of this form for your review Can you please further clarify the diagnosis based on the clinical indicators below? Please check appropriate box(s): [ ] NSTEMI (LA type I) [ x ] NSTEMI due to Demand Ischemia (AMI Type II) [ ] Demand Ischemia without LA [ ] No NSTEMI [ ] Other diagnosis [ ] Unable to determine In addition, please specify: Present on Admission (POA): [ x ] Yes [ ] No [ ] Unable to determine CLINICAL INDICATORS - SIGNS / SYMPTOMS / LABS Consult 08/30 Dr. Blas pg.2- Non- ST elevation myocardial infarction secondary to Demand Family PN 08/31 pg.4- elevated troponin, Trop 0.093, likely due to fluid overload and kidney disease Consult Dr. Burnham pg.1- Her EKG revealed to have normal sinus rhythm with a nonspecific T wave abnormality RISKS: HTN-H and P pg.1 IDDM2-H and P pg.1 CKD3- H and P pg.1 Hx of CVA-H and P pg.1 Hypertensive Emergency-H and P pg.3 New onset of congestive heart failure-H and P pg.3 Acute respiratory failure with hypoxia-H and P pg.4 TREATMENTS: Cardiology Consult 09/01 Dr. Burnham Chest X ray 08/30 Echocardiogram- 08/31 Carvedilol 12.5mg PO- MAR Furosemide Lasix- MAR 09/01 IV fluids- MAR (This form is maintained as a part of the permanent medical record) 2014 [employer]. All Rights Reserved [email or web address] [not provided] MTDD
--- NOTE | 2019-09-06 13:13 | DIS ---
DATE OF ADMISSION: 08/30/2019 DATE OF DISCHARGE: 09/05/2019 RESIDENT: Gibson Yoon MD. ADMITTING ATTENDING: Alberto Topete MD. DISCHARGE ATTENDING: Alberto Topete MD. CONSULTATIONS: Pulmonology, Dr. Blas on 08/30/2019. Metoprolol was changed to Coreg. Potassium and magnesium were replaced, on Cardene drip, but weaned. She was on oxygen, but gradually weaned, given Lasix. Chest x-ray should be repeated in 4-6 weeks to verify infiltrates have resolved. Nephrology, Dr. Crawford and Dr. Henriquez 08/31/2019, recommend close followup. After discharge, follow up with [address] Crawford appointment and labs. The patient is currently CKD stage 4, but leaning towards CKD stage 5 with need for dialysis possibly in the near future. Cardiology, Dr. Burnham and Dr. Nunez, 09/01/2019. The patient has hypertensive urgency, started on isosorbide and increased to 40 mg b.i.d. Diastolic heart failure, , not on HOLLY or ARB due to history of CKD. PROCEDURES: Chest x-ray on the 08/30, shows bilateral perihilar airspace opacities suspicious for pneumonia. There are small bilateral pleural effusions. Recommend radiographic followup to resolution. Abdominal and pelvis ultrasound 08/30, showed no evidence of significant renal artery stenosis, but increased resistive index in the upper pole of the left kidney. Echo 08/31/2019, showed trivial pericardial effusion. EF is 60% to 65%, mild left ventricular hypertrophy with flow reversal noted indicative of diastolic dysfunction. Normal right ventricular size and function. Left atrium normal size as well as right atrium, trace mitral regurg. Aortic valve appears tricuspid with mild sclerosis. No stenosis. Moderate tricuspid regurgitation. IMAGING: Chest x-ray on 09/02/2019, shows stable vascular congestion and minimal interstitial and alveolar edema. PRIMARY DIAGNOSES: 1. Hypertensive emergency. 2. Acute hypoxic respiratory failure. 3. Congestive heart failure, new onset. SECONDARY DIAGNOSES: 1. Acute kidney injury on chronic kidney disease. 2. Hyperkalemia. 3. Elevated troponin. 4. Diabetes type 2. 5. History of stroke. DISCHARGE MEDICATIONS: 1. Aspirin 81 mg. 2. Coreg 25 mg b.i.d. 3. Lasix 40 mg b.i.d. 4. Lantus 10 units in the morning. 5. Isosorbide dinitrate 40 mg b.i.d. 6. Procardia 60 mg b.i.d. DISCONTINUED MEDICATION: 1. Pepcid. 2. Tylenol. 3. Heparin. 4. IV hydralazine. 5. Labetalol. 6. Zofran. 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 The patient reports her shortness of breath began 3 days ago and has been worsening, which brought her to the ED and that she reports cough, congestion and a subjective fever. She denies history of chronic obstructive pulmonary disease, has smoking history of half pack per day for multiple decades. She states she has an inhaler from Dr. Mabry, but cannot recall what the medication is. Denies chest pain. Denies swelling. In the ED, she was given 0.4 mg of nitroglycerin, x3 DuoNebs, 40 mEq of potassium chloride, 2 mg of hydralazine, 40 mg of IV Lasix and started on Cardene drip. ASSESSMENT: 1. Hypertensive emergency. 2. Status post nitroglycerin, hydralazine, Lasix. Blood pressure remains elevated. 3. Cardene drip, Coreg, hydralazine and nifedipine as initiated. 4. Cardiology consulted. 5. Pulmonary consulted. 6. Nephrology consulted, change metoprolol to Coreg. 7. Acute hypoxic respiratory failure, no O2 requirement and supplementation as needed, likely secondary to hypertensive emergency causing flash pulmonary edema. 8. O2 weaned after room air before discharge. 9. Congestive heart failure, new onset. 10. BNP of 1473 on admission. Echo as noted above with normal ejection fraction and diastolic dysfunction noted. 11. Ramírez was placed to the obtain exact In's and Out's, but removed prior to discharge. 12. Acute kidney injury on chronic kidney disease, stage IV. 13. 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 Creatinine 3.58 on admission. 14. Nephrology consulted and the patient were given information to follow up with them as needed. 15. Renin and aldosterone levels are pending. 16. Hyperkalemia, resolved. 17. Elevated troponin, likely due to fluid overload and kidney disease. EKG normal with no events on tele. 18. Currently seen by Cardiology. 19. Diabetes type 2. Sliding scale insulin. 20. Home insulin regimen. 21. History of stroke with residual dysphagia. Continue home aspirin. DISPOSITION: Stable. DISCHARGE INSTRUCTIONS: Location: Home. Diet: Diabetic diet, heart healthy, low sodium. Activity: As tolerated. Followup: 1. Follow up with Dr. Crawford in 7 days. 2. Follow up with [facility] on 09/07/2019 at 10:40 a.m. 3. Follow up with Dr. Nunez in 14 days. 4. Follow up with [facility] and cardiac rehab. Job ID: [id number]
[2019-09-07 13:10] LABS: Renin Activity 0.187 ng/mL/hr (0.167-5.380)
== END 2019-09-05 15:14 | disposition home or self-care (01) | DRG 280 ==
LOC: ERS 00:48 → CCU 03:01 → 2NO 17:37
PROVIDERS: ADMIT Emergency Medicine; ATTEND Emergency Medicine
DX: I13.2 Hypertensive heart and chronic kidney disease with heart failure and with stage 5 chronic kidney disease, or end stage renal disease (principal); I50.33 Acute on chronic diastolic (congestive) heart failure; I21.A1 Myocardial infarction type 2; J96.01 Acute respiratory failure with hypoxia; N17.9 Acute kidney failure, unspecified; I16.1 Hypertensive emergency; N18.5 Chronic kidney disease, stage 5; Z66 Do not resuscitate; F17.210 Nicotine dependence, cigarettes, uncomplicated; E11.22 Type 2 diabetes mellitus with diabetic chronic kidney disease; R13.12 Dysphagia, oropharyngeal phase; H50.9 Unspecified strabismus; I16.0 Hypertensive urgency; E87.6 Hypokalemia; E83.42 Hypomagnesemia; D63.1 Anemia in chronic kidney disease; H53.009 Unspecified amblyopia, unspecified eye; I69.391 Dysphagia following cerebral infarction; Z90.710 Acquired absence of both cervix and uterus; Z90.49 Acquired absence of other specified parts of digestive tract; Z79.4 Long term (current) use of insulin; Z79.82 Long term (current) use of aspirin; Z79.899 Other long term (current) drug therapy; I69.320 Aphasia following cerebral infarction
CPT/HCPCS: 36415; 36416; 51702; 71045; 76770; 80048; 80053; 80306; 81015; 82088; 82553; 83036; 83605; 83735; 83880; 84100; 84244; 84484; 85025; 87804; 93005; 93306; 93798; 93975; 94640; 94760; 96365; 96366; 96375; J0360; J1644; J1815; J1940; J3475; J3480; J3490; J7050; J7620

== ENCOUNTER 2020-03-11 17:39 | Observation (INO) | payer MEDICARE, MEDICAID, OTHER ==
[2020-03-11 18:10] LABS: #Basophils 0.1 thou/uL (0.0-0.2); #Eosinphils 0.2 thou/uL (0.0-0.7); #Lymphocytes 2.8 thou/uL (1.20-3.40); #Monocytes 0.7 thou/uL (0.11-0.59); #Neutrophils 5.7 thou/uL (1.40-6.50); %Eosinophils 1.7 % (0.0-10.0); %Lymphocytes 29.7 % (21.0-51.0); %Monocytes 7.8 % (0.0-10.0); %Neutrophils 59.8 % (42.0-75.0); Hemoglobin 8.2 g/dL (12.0-16.0); Mean Corpuscular HGB CONC 31.8 g/dL (32.0-36.0); Mean Corpuscular Hemoglobin 29.7 pg (27.0-31.0); Mean Corpuscular Volume 93.4 fL (78.0-98.0); Mean Platelet Volume 6.8 fL (7.4-10.4); Platelet Count 363 thou/uL (130-400); RBC Distribution Width 14.2 % (11.5-14.5); Red Blood Cell (RBC) Count 2.76 mill/uL (4.20-5.40); White Blood Cell (WBC) Count 9.5 thou/uL (4.8-10.8)
[2020-03-11 18:28] LABS: ALT (SGPT) 26 U/L (8-55); AST (SGOT) 31 U/L (5-34); Albumin 3.2 g/dL (3.4-4.8); Alkaline Phosphatase 82 U/L (40-110); Anion Gap 15 mmol/L (10-20); BUN (Urea Nitrogen) 47 mg/dL (9.8-20.1); Bilirubin, Total 0.4 mg/dL (0.2-1.2); Calc. Creatinine Clearance 0 mL/min (70-130); Calcium 8.7 mg/dL (7.8-10.44); Carbon Dioxide 20 mmol/L (23-31); Chloride 112 mmol/L (98-107); Estimated GFR-MDRD 22; Globulin 4.5 g/dL (2.4-3.5); Glucose 96 mg/dL (80-115); Potassium 3.7 mmol/L (3.5-5.1); Protein, Total 7.7 g/dL (6.0-8.3); Sodium 143 mmol/L (136-145)
[2020-03-11 19:18] LABS: CKMB 0.7 ng/mL (0-6.6)
--- NOTE | 2020-03-11 19:21 | RAD ---
PORTABLE CHEST: 03/11/20 HISTORY: Shortness of breath, wheezing. COMPARISON: Exam done earlier today. Heart size is enlarged. There has been improvement to the bilateral somewhat patchy parenchymal lung changes. Still with somewhat more peripheral distribution. I would favor pneumonia, although the repe atedly of some of the clearing may indicate there is some resolution of some coexistent edema. IMPRESSION: 1. Cardiomegaly. 2. Definite improvement in the pulmonary vascular engorgement and patchy interstitial lung matos es as compared to the prior exam. The repeatedly of these changes would suggest that at least some el ement of this is resolving edema, although there is still a patchy distribution of what appear to be more infiltrative lung changes also noted. Continued follow-up is suggested. POS: JANIYADI
[2020-03-11] MEDS ORDERED: Azithromycin 500 MG VIAL ONE (20:08)
[2020-03-11] MEDS ORDERED: Aspirin 325 MG TAB ONE (20:08)
[2020-03-11] MEDS ORDERED: Furosemide 40 MG/4 ML VIAL ONE (20:24)
[2020-03-11 21:35] LABS: Troponin I 0.036 ng/mL (< 0.028)
[2020-03-11 21:56] LABS: Lactic Acid 0.4 mmol/L (0.5-2.2)
[2020-03-11] MEDS ORDERED: Acetaminophen 325 MG TAB PO PRN (22:54)
[2020-03-11 23:25] VITALS: BMI 24.5
[2020-03-11] MEDS ORDERED: HumaLOG 300 UNITS/3 ML VIAL SC PRN ×2 (23:47)
[2020-03-11] MEDS ORDERED: Dextrose 5% in Water 1,000 ML IV PRN (23:47)
[2020-03-11] MEDS ORDERED: Dextrose 50% Abboject 50 ML SYRINGE SLOW IVP PRN (23:47)
--- NOTE | 2020-03-12 00:52 | PDOC.HHP ---
Hospitalist HPI - History of Present Illness difficulty breathing History of Present Illness: Ms Rebolledo is a 64 year old female who presents with one day of shortness of breath. She had pneumonia earlier this month and was treated although she does not remember what her treatment was. She states that this shortness of breath feels different than the symptoms she had with the pneumonia. Denies that the shortness of breath is worse with activity and denies chest pain. She also complains of lower extermity swelling that has been present for approximately 2 weeks. Denies sick contacts, fever, cough, GI problems. She does live in a long-term and was tested for Covid 19 earlier this week which resulted as negative. ED Course: In the ER she had lab work including a Covid 19 swab, EKG and chest xray completed. She was given ASA 325 mg, lasix 40 mg IVP, and axithromycin 500 mg for possible CAP. Hospitalist ROS - Review of Systems Constitutional: denies: fever, chills, sweats, weakness, malaise, other Eyes: denies: pain, vision change, conjunctivae inflammation, eyelid inflammation, redness, other ENT: denies: ear pain, ear discharge, nose pain, nose discharge, nose congestion , mouth pain, mouth swelling, throat pain, throat swelling, other Respiratory: reports: shortness of breath, SOB with excertion Cardiovascular: reports: edema (BLE) Gastrointestinal: denies: nausea, vomiting, abdominal pain, diarrhea, constipation, melena, hematochezia, other Genitourinary: denies: dysuria, frequency, incontinence, hematuria, retention, other Musculoskeletal: denies: neck pain, shoulder pain, arm pain, back pain, hand pain, leg pain, foot pain, other Skin: denies: rash, lesions, ananya, bruising, other Neurological: denies: weakness, numbness, incoordination, change in speech, confusion, seizures, other All other systems reviewed; all pertinent +/- noted in HPI/Subj - Medication Medications: NKDA Medications reconciled in ER: aspirin oral TueMar 11, 2020 17:52 ELADIO Hirsch Ashleigh TABLET : Strength - 81 mg : ORAL Patient Dose: 81 mg Oral once a day. hydroCHLOROthiazide TueMar 11, 2020 17:52 ELADIO Hirsch Ashleigh capsule : Strength - 12.5 mg : ORAL Patient Dose: 1 tab(s) Oral once a day. NovoLOG PenFill TueMar 11, 2020 17:52 ELADIO Hirsch Ashleigh CARTRIDGE (ML) : Strength - 100 unit/mL : SUBCUTANEOUS Patient Dose: units Subcutaneous See Notes.4 units in AM and at lunch, 6-7 units in PM. albuterol sulfate inhalation TueMar 11, 2020 17:53 ELADIO Hirsch Ashleigh solution for nebulization : Strength - 1.25 mg/3 mL : INHALATION Patient Dose: Unknown. allopurinol TueMar 11, 2020 17:53 ELADIO Hirsch Ashleigh tablet : Strength - 100 mg : ORAL Patient Dose: once a day. cloNIDine HCl TueMar 11, 2020 17:55 ELADIO Hirsch Ashleigh tablet : Strength - 0.1 mg : ORAL Patient Dose: 2 times a day. Coreg TueMar 11, 2020 17:56 ELADIO Hirsch Ashleigh tablet : Strength - 25 mg : ORAL Patient Dose: 2 times a day. isosorbide dinitrate oral TueMar 11, 2020 17:56 ELADIO Hirsch Ashleigh tablet : Strength - 40 mg : ORAL Patient Dose: once a day. Lasix oral TueMar 11, 2020 17:57 ELADIO Hirsch Ashleigh tablet : Strength - 40 mg : ORAL Patient Dose: once a day. 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 Gastrointestinal: reports: no pertinent history Heme/Onc: reports: no pertinent history Hepatobiliary: reports: no pertinent history Psych: reports: no pertinent history Musculoskeletal: reports: no pertinent history Rheumatologic: reports: Gout Infectious Disease: reports: no pertinent history ENT: reports: no pertinent history Renal/: reports: Chronic renal insuff Endocrine: reports: Diabetes Dermatology: reports: no pertinent history - Past Surgical History Past Surgical History: reports: Hysterectomy - Family History Family History: reports: no pertinent history - Social History Smoking Status: Current every day smoker (1/2 PPD) Alcohol: reports: None Drugs: reports: none Living Situation: Fdc Occupation: disabled Activity level: uses cane/walker - Exam General Appearance: NAD, awake alert General - other findings: VS 162/82 P 71 RR21 T98.3 orally 94%RA Eye: PERRL ENT: normocephalic atraumatic Neck: supple, no JVD, no lymphadenopathy Heart: RRR, no murmur, no gallops, no rubs, normal peripheral pulses Respiratory: normal chest expansion, rhonchi, tachypneic, wheezes Respiratory - other findings: NC 2L- normally not O2 dependent Gastrointestinal: soft, non-tender, non-distended, normal bowel sounds Extremities: 1+ LE edema Neurological: no new deficit Psychiatric: normal affect, normal behavior Hospitalist Results - Labs Result Diagrams: 03/11/20 17:54 03/11/20 17:54 Lab results: WBC 9.5 thou/uL (4.8-10.8) 03/11/20 17:54 Hgb 8.2 g/dL (12.0-16.0) L 03/11/20 17:54 Hct 25.8 % (36.0-47.0) L 03/11/20 17:54 MCV 93.4 fL (78.0-98.0) 03/11/20 17:54 Plt Count 363 thou/uL (130-400) 03/11/20 17:54 Neutrophils % 59.8 % (42.0-75.0) 03/11/20 17:54 Sodium 143 mmol/L (136-145) 03/11/20 17:54 Potassium 3.7 mmol/L (3.5-5.1) 03/11/20 17:54 Chloride 112 mmol/L (98-107) H 03/11/20 17:54 Carbon Dioxide 20 mmol/L (23-31) L 03/11/20 17:54 BUN 47 mg/dL (9.8-20.1) H 03/11/20 17:54 Creatinine 2.68 mg/dL (0.6-1.1) H 03/11/20 17:54 Glucose 96 mg/dL (80-115) 03/11/20 17:54 Lactic Acid 0.4 mmol/L (0.5-2.2) L 03/11/20 21:33 Calcium 8.7 mg/dL (7.8-10.44) 03/11/20 17:54 Total Bilirubin 0.4 mg/dL (0.2-1.2) 03/11/20 17:54 AST 31 U/L (5-34) 03/11/20 17:54 ALT 26 U/L (8-55) 03/11/20 17:54 Alkaline Phosphatase 82 U/L (40-110) 03/11/20 17:54 Creatine Kinase 34 U/L (29-168) 03/11/20 17:54 CK-MB (CK-2) 0.7 ng/mL (0-6.6) 03/11/20 17:54 Troponin I 0.036 ng/mL (< 0.028) H 03/11/20 21:01 B-Natriuretic Peptide 1048.4 pg/mL (0-100) H 03/11/20 17:54 Serum Total Protein 7.7 g/dL (6.0-8.3) 03/11/20 17:54 Albumin 3.2 g/dL (3.4-4.8) L 03/11/20 17:54 Laboratory Tests 03/11/20 03/11/20 03/11/20 17:54 21:01 21:01 Lactic Acid Troponin I 0.036 H B-Natriuretic Peptide 1048.4 H Procalcitonin 0.05 03/11/20 03/12/20 21:33 00:35 Lactic Acid 0.4 L Troponin I 0.034 H B-Natriuretic Peptide Procalcitonin - EKG Interpretation EKG: SR 74 - Radiology Interpretation Chest x-ray Status: image reviewed by me, report reviewed by me Additional Comment: Cardiomegaly Definite improvement in the pulmonary vascular engorgement and patchy interstitial lung changes as compared to the prior exam. Suggests that some element is resolving edema. 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 However, repeat chest xray in the morning to reassess as it did show improvement after IV lasix but still showed possible underlying infiltrative lung changes Resume coreg- not on HOLLY/ARB due to CKD Echo completed 08/30/19 with EF 60-65% HTN: Stable, resume home medications DM: Accucheks AC/HS SSI Resume home medications CKD: Monitor am labs and output Managed by Dr. Henriquez outpatient Elevated troponin: Increase ASA to 325 mg daily from home dose of 81 mg Trend troponins- appears to be at baseline level possibly secondary to CKD Monitor on tele GI and VTE prophylaxis in place
[2020-03-12 01:09] LABS: Troponin I 0.034 ng/mL (< 0.028)
[2020-03-12 05:42] LABS: #Basophils 0.1 thou/uL (0.0-0.2); #Lymphocytes 1.6 thou/uL (1.20-3.40); #Monocytes 0.6 thou/uL (0.11-0.59); #Neutrophils 7.3 thou/uL (1.40-6.50); %Basophils 0.6 % (0.0-1.0); %Eosinophils 0.3 % (0.0-10.0); %Lymphocytes 16.3 % (21.0-51.0); %Monocytes 6.1 % (0.0-10.0); %Neutrophils 76.7 % (42.0-75.0); Hemoglobin 8.4 g/dL (12.0-16.0); Mean Corpuscular HGB CONC 32.9 g/dL (32.0-36.0); Mean Corpuscular Hemoglobin 30.5 pg (27.0-31.0); Mean Corpuscular Volume 92.7 fL (78.0-98.0); Mean Platelet Volume 6.7 fL (7.4-10.4); Platelet Count 336 thou/uL (130-400); RBC Distribution Width 14.6 % (11.5-14.5); Red Blood Cell (RBC) Count 2.75 mill/uL (4.20-5.40); White Blood Cell (WBC) Count 9.6 thou/uL (4.8-10.8)
[2020-03-12 06:03] LABS: Anion Gap 15 mmol/L (10-20); BUN (Urea Nitrogen) 47 mg/dL (9.8-20.1); Calc. Creatinine Clearance 25 mL/min (70-130); Carbon Dioxide 20 mmol/L (23-31); Chloride 112 mmol/L (98-107); Estimated GFR-MDRD 23; Glucose 125 mg/dL (80-115); Magnesium 1.6 mg/dL (1.6-2.6); Potassium 3.9 mmol/L (3.5-5.1); Sodium 143 mmol/L (136-145)
[2020-03-12] MEDS: Furosemide 40 MG/4 ML VIAL SLOW IVP SCH ×2 (06:14→14:47)
--- NOTE | 2020-03-12 07:52 | RAD ---
CHEST 1 VIEW: INDICATION: History of CHF exacerbation versus pneumonia. COMPARISON: Prior exam dated 03/11/2020. FINDINGS: There is worsening cardiomegaly, pulmonary vascular congestion, and bilateral airspace disease. Ther e is slight elevation of the right hemidiaphragm. No karla pleural effusion or pneumothorax is evide nt. IMPRESSION: Worsening cardiomegaly and pulmonary vasculature disease. Bilateral airspace disease is slightly wor se and may reflect worsening pneumonia or edema. No karla pleural effusion is evident. POS: BH
[2020-03-12] MEDS: cloNIDine 0.1 MG TAB PO SCH ×2 (07:53→20:44)
[2020-03-12] MEDS: Insulin Glargine 10 UNITS in Pre-Filled Syringe 1 EACH SC SCH (07:53)
[2020-03-12] MEDS: Carvedilol 25 MG TAB PO SCH ×2 (07:54→16:34)
[2020-03-12] MEDS: Isosorbide Dinitrate 20 MG TAB PO SCH ×2 (07:54→20:44)
[2020-03-12] MEDS: NIFEdipine XL 60 MG TAB PO SCH ×2 (07:54→20:44)
[2020-03-12] MEDS ORDERED: Aspirin 325 MG TAB PO SCH (08:00)
[2020-03-12] MEDS ORDERED: hydrALAZINE 25 MG TAB PO PRN (08:22)
[2020-03-12 14:21] LABS: SARS-CoV-2 MS2 Positive; SARS-CoV-2 N Gene Negative; SARS-CoV-2 S Gene Negative; SARS-CoV-2 orf1ab Negative
--- NOTE | 2020-03-12 14:58 | PDOC.HOSPP ---
- Subjective Encounter Date: 03/12/20 Encounter Time: 14:56 Subjective: Mr. Rebolledo was seen today in follow-up of CHF exacerbation. She does not have any complaints. She says she is breathing better. She denies chest pain. - Objective Vital Signs & Weight: Vital Signs (12 hours) Temp Pulse Resp BP Pulse Ox 03/12/20 11:34 98.0 F 68 16 149/70 H 96 03/12/20 08:02 99.3 F 79 16 170/80 H 99 Weight Weight 161 lb 1.6 oz I&O: 03/11/20 03/12/20 03/13/20 06:59 06:59 06:59 Intake Total 200 Output Total 1200 Balance -1000 Result Diagrams: 03/12/20 05:20 03/12/20 05:20 Additional Labs: Accuchecks 03/12/20 03/11/20 11:47 23:04 POC Glucose 114 H 138 H Hospitalist ROS - Medication Medications: Active Medications Generic Name Dose Route Start Last Admin Trade Name Mary PRN Reason Stop Dose Admin Aspirin 325 mg 03/12/20 08:00 03/12/20 07:53 Aspirin PO 325 mg QAM-WM CHAZ Administration Carvedilol 25 mg 03/12/20 08:00 03/12/20 07:54 Coreg PO 25 mg BID-WM CHAZ Administration Clonidine 0.1 mg 03/12/20 09:00 03/12/20 07:53 Catapres PO 0.1 mg BID CHAZ Administration Furosemide 40 mg 03/12/20 06:00 03/12/20 14:47 Lasix SLOW IVP 40 mg 0600,1400 CHAZ Administration Insulin Glargine 10 units/ 0.1 mls @ 0 mls/hr 03/12/20 09:00 03/12/20 07:53 Miscellaneous Medication SC 0.1 mls QAM CHAZ Administration Isosorbide Dinitrate 40 mg 03/12/20 09:00 03/12/20 07:54 Isordil PO 40 mg BID CHAZ Administration Nifedipine 60 mg 03/12/20 09:00 03/12/20 07:54 Procardia Xl PO 60 mg BID CHAZ Administration Pantoprazole Sodium 40 mg 03/12/20 09:00 03/12/20 07:54 Protonix PO 40 mg DAILY CHAZ Administration - Exam Eye: PERRL, anicteric sclera Heart: RRR, no murmur, no gallops, no rubs, normal peripheral pulses Respiratory: rales (+ rales at the bases, otherwise clear) Gastrointestinal: soft, non-tender, non-distended, normal bowel sounds, no palpable masses Extremities: no cyanosis, 1+ LE edema Hosp A/P (1) Diastolic CHF, acute on chronic Code(s): I50.33 - ACUTE ON CHRONIC DIASTOLIC (CONGESTIVE) HEART FAILURE Status : Acute (2) HTN (hypertension) Code(s): I10 - ESSENTIAL (PRIMARY) HYPERTENSION Status: Chronic (3) CKD (chronic kidney disease) stage 4, GFR 15-29 ml/min Code(s): N18.4 - CHRONIC KIDNEY DISEASE, STAGE 4 (SEVERE) Status: Chronic (4) DM2 (diabetes mellitus, type 2) Status: Chronic Qualifiers: Diabetes mellitus halfway insulin use: with halfway use - Plan * Acute on chronic diastolic heart failure- she has diuresed well overnight. * Will change Lasix to p.o. * She had an Echo in August of 2019, and had a normal EF(60-65%) * HTN- will re-start her home medications and monitor * DM- re-start home medications, and continue SSI- blood glucoseis stable * Hopefully home tomorrow
[2020-03-13 05:10] LABS: Anion Gap 13 mmol/L (10-20); BUN (Urea Nitrogen) 47 mg/dL (9.8-20.1); Calc. Creatinine Clearance 23 mL/min (70-130); Calcium 8.4 mg/dL (7.8-10.44); Carbon Dioxide 23 mmol/L (23-31); Chloride 109 mmol/L (98-107); Estimated GFR-MDRD 21; Glucose 91 mg/dL (80-115); Potassium 3.4 mmol/L (3.5-5.1); Sodium 142 mmol/L (136-145)
[2020-03-13] MEDS ORDERED: Potassium Chloride 20 MEQ TAB PO SCH (07:45)
[2020-03-13] MEDS: Isosorbide Dinitrate 20 MG TAB PO SCH (08:24)
[2020-03-13] MEDS: NIFEdipine XL 60 MG TAB PO SCH (08:24)
[2020-03-13] MEDS: Insulin Glargine 10 UNITS in Pre-Filled Syringe 1 EACH SC SCH (08:25)
[2020-03-13] MEDS: Carvedilol 25 MG TAB PO SCH (08:25)
[2020-03-13] MEDS: cloNIDine 0.1 MG TAB PO SCH (08:25)
[2020-03-13] MEDS ORDERED: Allopurinol 100 MG TAB PO SCH (09:00)
[2020-03-13] MEDS ORDERED: Aspirin 81 mg Enteric Coated Tablet PO SCH (09:00)
[2020-03-13] MEDS ORDERED: Furosemide 40 MG TAB PO SCH (09:00)
--- NOTE | 2020-03-13 11:02 | PDOC.HOSPP ---
- Subjective Encounter Date: 03/13/20 Encounter Time: 11:01 Subjective: Ms. Rebolledo was seen today in follow-up of CHF exacerbation. She is breathing better. She does not have any complaints. She denies feeling short of breath. - Objective Vital Signs & Weight: Vital Signs (12 hours) Temp Pulse Resp BP Pulse Ox 03/13/20 07:37 98.4 F 70 20 143/63 H 93 L 03/13/20 03:03 98.5 F 67 18 147/67 H 92 L 03/12/20 23:33 148/65 H Weight Weight 152 lb 3.2 oz I&O: 03/12/20 03/13/20 03/14/20 06:59 06:59 06:59 Intake Total 200 1080 Output Total 1200 950 Balance -1000 130 Result Diagrams: 03/12/20 05:20 03/13/20 03:51 Additional Labs: Accuchecks 03/13/20 03/13/20 03/12/20 10:42 06:01 20:16 POC Glucose 129 H 97 204 H 03/12/20 03/12/20 16:47 11:47 POC Glucose 121 H 114 H Hospitalist ROS - Medication Medications: Active Medications Generic Name Dose Route Start Last Admin Trade Name Freq PRN Reason Stop Dose Admin Allopurinol 100 mg 03/13/20 09:00 03/13/20 08:25 Zyloprim PO 100 mg DAILY CHAZ Administration Aspirin 81 mg 03/13/20 09:00 03/13/20 08:25 Ecotrin PO 81 mg DAILY CHAZ Administration Carvedilol 25 mg 03/12/20 08:00 03/13/20 08:25 Coreg PO 25 mg BID-WM CHAZ Administration Clonidine 0.1 mg 03/12/20 09:00 03/13/20 08:25 Catapres PO 0.1 mg BID CHAZ Administration Furosemide 40 mg 03/13/20 09:00 03/13/20 08:25 Lasix PO 40 mg 0900,1400 CHAZ Administration Insulin Glargine 10 units/ 0.1 mls @ 0 mls/hr 03/12/20 09:00 03/13/20 08:25 Miscellaneous Medication SC 0.1 mls QAM CHAZ Administration Isosorbide Dinitrate 40 mg 03/12/20 09:00 03/13/20 08:24 Isordil PO 40 mg BID CHAZ Administration Nifedipine 60 mg 03/12/20 09:00 03/13/20 08:24 Procardia Xl PO 60 mg BID CHAZ Administration Pantoprazole Sodium 40 mg 03/12/20 09:00 03/13/20 08:24 Protonix PO 40 mg DAILY CHAZ Administration - Exam Eye: PERRL Heart: RRR, murmur present, II/IV Respiratory: CTAB, no wheezes, no rales, no ronchi, normal chest expansion Extremities: no cyanosis, 1+ LE edema Hosp A/P (1) Diastolic CHF, acute on chronic Code(s): I50.33 - ACUTE ON CHRONIC DIASTOLIC (CONGESTIVE) HEART FAILURE Status : Acute (2) HTN (hypertension) Code(s): I10 - ESSENTIAL (PRIMARY) HYPERTENSION Status: Chronic (3) CKD (chronic kidney disease) stage 4, GFR 15-29 ml/min Code(s): N18.4 - CHRONIC KIDNEY DISEASE, STAGE 4 (SEVERE) Status: Chronic (4) DM2 (diabetes mellitus, type 2) Status: Chronic Qualifiers: Diabetes mellitus superintendent container terminal insulin use: with superintendent container terminal use - Plan * Acute on chronic diastolic heart failure- she has diuresed well overnight. * Will change Lasix to p.o. * She had an Echo in August of 2019, and had a normal EF(60-65%) * She continues to do well. discussed briefly diet. She is seen at the heart failure clinic * Stable for discharge home.
[2020-03-13 11:45] VITALS: BP 145/67; TEMP 99.9
--- NOTE | 2020-03-14 06:08 | DIS ---
DATE OF ADMISSION: 03/11/2020 DATE OF DISCHARGE: 03/13/2020 PRIMARY CARE PHYSICIAN: Dre Lopes. DISCHARGE DISPOSITION: Home. DISCHARGE DIAGNOSES: 1. Acute on chronic diastolic heart failure. 2. Hypertension. 3. History of cerebrovascular accident. 4. Diabetes mellitus type 2. DISCHARGE MEDICATIONS: Include: 1. Procardia XL 60 mg b.i.d. 2. Isosorbide dinitrate 40 mg twice daily. 3. Lantus insulin 10 units subcu daily. 4. Coreg 25 mg twice a day. 5. Nicotine patch transdermal daily. 6. Floranex one tablet daily. 7. Lasix 40 mg p.o. daily. 8. Clonidine 0.1 mg p.o. twice a day. 9. Aspirin 81 mg daily. 10. Allopurinol 100 mg daily. 11. Tylenol 650 mg p.o. daily. IMAGING: No imaging done. HOSPITAL COURSE: Ms. Rebolledo is a pleasant 64-year-old female, who was admitted to the hospital after complaining of shortness of breath. She was evaluated in the emergency department and was found to have evidence of volume overload. There was also concern due to the x-ray pattern for COVID-19 infection. A COVID screen was done, which came back negative. She was diuresed due to the volume overload and did very well the following day. We transitioned her to oral Lasix after being treated with IV. She continued to do well. Her proBNP came down to almost a third of that on admission and she was subsequently able to be discharged home with close followup. She was counseled on diet and sodium intake and was also instructed to weigh herself daily and if her weight increased over 3 pounds overnight, to call her physician to ask for instructions. Job ID: [id number]
--- NOTE | 2020-03-16 11:26 | EKG ---
Test Reason : SOB Blood Pressure : / mmHG Vent. Rate : 074 BPM Atrial Rate : 074 BPM P-R Int : 208 ms QRS Dur : 084 ms QT Int : 396 ms P-R-T Axes : 062 012 029 degrees QTc Int : 439 ms Normal sinus rhythm Normal ECG Confirmed by TEJAS REYES DO ([id number]), editor at large CYNTHIA OG ([id number]) on 03/16/2020 11:26:50 AM Referred By: Confirmed By:TEJAS REYES DO
== END 2020-03-13 12:36 ==
LOC: ERS 17:39 → 2SW 20:46 → 2NO 03-12 17:50
PROVIDERS: ADMIT Internal Medicine; ATTEND Internal Medicine
DX: I13.0 Hypertensive heart and chronic kidney disease with heart failure and stage 1 through stage 4 chronic kidney disease, or unspecified chronic kidney disease (principal); E11.22 Type 2 diabetes mellitus with diabetic chronic kidney disease; N18.4 Chronic kidney disease, stage 4 (severe); I50.33 Acute on chronic diastolic (congestive) heart failure; F17.210 Nicotine dependence, cigarettes, uncomplicated; Z79.4 Long term (current) use of insulin; Z79.82 Long term (current) use of aspirin; Z79.899 Other long term (current) drug therapy; Z86.73 Personal history of transient ischemic attack (TIA), and cerebral infarction without residual deficits; Z20.828 Contact with and (suspected) exposure to other viral communicable diseases
CPT/HCPCS: 71045 ×2; 80048 ×2; 80053; 82550; 82553; 82962 ×3; 83605; 83735; 83880 ×2; 84145; 84443; 84484 ×3; 85025 ×2; 93005; 96365; 96375; 96376; 99285; G0378 ×4; U0003; 36415; 36416; 87635; J0456; J1815; J1940

== ENCOUNTER 2020-09-24 13:12 | Outpatient (CLI) | payer MEDICARE, MEDICAID ==
--- NOTE | 2020-09-24 13:47 | BD ---
DEXA BONE DENSITY STUDY: Date: 09/24/2020 HISTORY: Postmenopausal. FINDINGS: Lumbar Spine: BMD (g/cm2) L1 1.074 T-Score: +0.8 L2 1.130 T-Score: +0.9 L3 1.163 T-Score: +0.7 L4 1.161 T-Score: +0.9 Total 1.136 T-Score: +0.8 Left Femoral Neck: 0.678 T-Score: -1.5 Total Femur: 0.845 T-Score: -0.8 IMPRESSION: 1. Osteopenia of the left femoral neck. 2. Normal bone mineral density of the lumbar spine. 3. 10 year fracture for a major osteoporotic fracture is 4% and for a hip fracture is 0.8%. These fr acture probabilities are calculated for an untreated patient. POS: [facility]
--- NOTE | 2020-09-24 14:02 | MMO ---
Bilateral MAMMO Bilat Screen [facility]. CLINICAL HISTORY: Patient is 65 years old and is seen for screening. The patient has no family history of breast cancer. The patient has no personal history of cancer. VIEWS: The views performed were: bilateral craniocaudal with tomosynthesis and bilateral mediolateral oblique with tomosynthesis. FILMS COMPARED: The present examination has been compared to prior imaging studies performed at [facility] on 05/10/2016, 05/11/2017, 05/15/2018 and 05/30/2019. This study has been interpreted with the assistance of computer-aided detection. MAMMOGRAM FINDINGS: There are new areas of skin thickening and new areas of trabecular thickening seen in both breasts. Skin thickening,trabecular thickening, and subcutaneous thickening diffusely. Possibly diffuse edema or anasarca IMPRESSION: NEW AREAS OF SKIN THICKENING AND AREAS OF TRABECULAR THICKENING IN BOTH BREASTS REQUIRE ADDITIONAL EVALUATION. AN ULTRASOUND EXAM IS RECOMMENDED. THE RESULTS OF THIS EXAM WERE SENT TO THE PATIENT. ACR BI-RADS Category 0 - Incomplete: Need additional imaging evaluation. [facility] will notify the patient of the need for additional imaging services. MAMMOGRAPHY NOTE: 1. A negative mammogram report should not delay a biopsy if a dominant of clinically suspicious mass is present. 2. Approximately 10% to 15% of breast cancers are not detected by mammography. 3. Adenosis and dense breasts may obscure an underlying neoplasm. Reported by: AMALIA CAMARENA MD Electonically Signed: [id number]
== END 2020-09-24 13:13 | disposition home or self-care (01) ==
LOC: BICMAMMO 13:12
PROVIDERS: ATTEND Family Medicine
DX: Z12.31 Encounter for screening mammogram for malignant neoplasm of breast (principal); Z13.820 Encounter for screening for osteoporosis; N95.1 Menopausal and female climacteric states; N64.59 Other signs and symptoms in breast; M85.852 Other specified disorders of bone density and structure, left thigh
CPT/HCPCS: 77063; 77067; 77080

== ENCOUNTER 2020-10-03 15:05 | Outpatient (CLI) | payer MEDICARE, MEDICAID ==
--- NOTE | 2020-10-03 15:27 | ULT ---
US Breast Limited Rt: 10/03/2020 12:00 AM CLINICAL INDICATION: Bilateral breast edema without visualized mass. COMPARISON: Mammograms 09/24/2020, 05/30/2019 TECHNIQUE: Multiplanar grayscale and color Doppler images were obtained of the breast. FINDINGS: Normal appearing parenchyma is seen. No suspicious mass is seen. No suspicious shadowing is seen. No cyst is identified. IMPRESSION: BI-RADS Category 1-negative. Bilateral breast edema is most likely secondary to a systemi c process such as congestive heart failure.
== END 2020-10-03 15:06 | disposition home or self-care (01) ==
LOC: BICULT 15:05
PROVIDERS: ATTEND Family Medicine
DX: N64.89 Other specified disorders of breast (principal)

== ENCOUNTER 2020-10-15 13:43 | Outpatient (CLI) | payer MEDICARE, MEDICAID ==
--- NOTE | 2020-10-15 14:16 | CT ---
CT BRAIN WITHOUT CONTRAST: 10/15/20 HISTORY: Mild cognitive impairment, so stated. COMPARISON: 06/03/18. 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 Ex vacuo dilatation of the left lateral ventricle is also stable. The ventricular size is stable and the basilar cisterns patent. No evidence of acute infarct, hemorrhage, midline shift, or abnormal extra-axial fluid collection is seen. Bilateral basal ganglia calcifications again seen. The bony calvarium is intact. There is mucos al disease in the paranasal sinuses. IMPRESSION: Chronic changes. No evidence of acute intracranial process. POS: OFF
== END 2020-10-15 13:44 | disposition home or self-care (01) ==
LOC: BICCT 13:43
PROVIDERS: ATTEND Psychiatry & Neurology Neurology
DX: G31.84 Mild cognitive impairment of uncertain or unknown etiology (principal)
CPT/HCPCS: 70450

== ENCOUNTER 2021-05-31 15:26 | Inpatient (IN) | payer MEDICARE, MEDICAID ==
[2021-05-31] MEDS ORDERED: Acetaminophen 650 MG Suppository ONE (15:37)
[2021-05-31 15:47] LABS: #Lymphocytes 0.8 thou/uL (1.20-3.40); #Monocytes 0.4 thou/uL (0.11-0.59); #Neutrophils 5.6 thou/uL (1.40-6.50); %Basophils 0.3 % (0.0-1.0); %Eosinophils 0.2 % (0.0-10.0); %Lymphocytes 11.5 % (21.0-51.0); %Monocytes 6.5 % (0.0-10.0); %Neutrophils 81.6 % (42.0-75.0); Hemoglobin 8.1 g/dL (12.0-16.0); Mean Corpuscular HGB CONC 32.9 g/dL (32.0-36.0); Mean Corpuscular Hemoglobin 31.3 pg (27.0-31.0); Mean Corpuscular Volume 95.3 fL (78.0-98.0); Platelet Count 179 thou/uL (130-400); RBC Distribution Width 17.5 % (11.5-14.5); Red Blood Cell (RBC) Count 2.57 mill/uL (4.20-5.40); White Blood Cell (WBC) Count 6.9 thou/uL (4.8-10.8)
[2021-05-31] MEDS ORDERED: Vancomycin 1 GM/200 ML BAG ONE (15:50)
[2021-05-31] MEDS ORDERED: cefTRIAXone\\ROCEPHIN 2 GM VIAL ONE (15:50)
[2021-05-31] MEDS ORDERED: Dexamethasone 10 MG/ML VIAL ONE (15:50)
[2021-05-31] MEDS ORDERED: Furosemide 100 MG/10 ML VIAL ONE (15:50)
[2021-05-31 16:07] LABS: ALT (SGPT) 15 U/L (8-55); AST (SGOT) 25 U/L (5-34); Albumin 2.8 g/dL (3.4-4.8); Alkaline Phosphatase 57 U/L (40-110); Anion Gap 19 mmol/L (10-20); BUN (Urea Nitrogen) 72 mg/dL (9.8-20.1); Bilirubin, Total 0.5 mg/dL (0.2-1.2); Calc. Creatinine Clearance 0 mL/min (70-130); Calcium 7.5 mg/dL (7.8-10.44); Carbon Dioxide 15 mmol/L (23-31); Chloride 111 mmol/L (98-107); Glucose 138 mg/dL (80-115); Potassium 3.8 mmol/L (3.5-5.1); Protein, Total 6.8 g/dL (5.8-8.1); Sodium 141 mmol/L (136-145)
[2021-05-31 16:39] LABS: CKMB 1.2 ng/mL (0-6.6)
[2021-05-31 16:47] LABS: SARS-CoV-2 NAA Rapid Test DETECTED (NotDetected)
[2021-05-31] MEDS ORDERED: Aspirin 300 MG Suppository ONE (17:28)
[2021-05-31] MEDS ORDERED: Heparin 10,000 UNITS/ 10 ML VIAL SLOW IVP SCH (23:45)
[2021-05-31] MEDS ORDERED: Dextrose 50% Abboject 50 ML SYRINGE SLOW IVP PRN (23:53)
[2021-05-31] MEDS ORDERED: Acetaminophen 325 MG TAB PO PRN (23:53)
[2021-05-31] MEDS ORDERED: Dextrose 5% in Water 1,000 ML IV PRN (23:53)
[2021-05-31] MEDS ORDERED: Ondansetron PF 4 MG/2 ML Vial IVP PRN (23:53)
[2021-05-31] MEDS ORDERED: Guaifenesin DM 100-10/5 ML UDCUP PO PRN (23:53)
[2021-05-31] MEDS ORDERED: Bisacodyl 5 MG TAB PO PRN (23:53)
[2021-05-31] MEDS ORDERED: HYDROcodone/Acetaminophen 5/325 mg Tablet PO PRN (23:53)
[2021-05-31] MEDS ORDERED: HumaLOG 300 UNITS/3 ML VIAL SC PRN (23:53)
[2021-05-31] MEDS ORDERED: hydrALAZINE 20 MG/ML VIAL SLOW IVP PRN (23:56)
[2021-06-01] MEDS ORDERED: Heparin 25,000 units/D5W 500 ML IVPB SCH (00:15)
[2021-06-01] MEDS ORDERED: Clopidogrel Bisulfate 300 MG TAB PO SCH (00:15)
[2021-06-01] MEDS ORDERED: Furosemide 100 MG/10 ML VIAL SLOW IVP SCH ×2 (00:15→06:00)
[2021-06-01] MEDS ORDERED: Dexamethasone 10 MG in Sodium Chloride 0.9% 50 ML IVPB SCH ×2 (00:30→09:00)
[2021-06-01 00:51] LABS: Hemoglobin 8.3 g/dL (12.0-16.0); Platelet Count 167 thou/uL (130-400)
[2021-06-01] MEDS ORDERED: Nicotine 14 MG PATCH TD SCH (01:00)
[2021-06-01] MEDS ORDERED: Dexamethasone 10 MG/ML VIAL ONE (01:20)
[2021-06-01] MEDS ORDERED: Furosemide 40 MG/4 ML VIAL ONE (01:20)
[2021-06-01] MEDS ORDERED: Nicotine 14 MG PATCH ONE (01:42)
[2021-06-01 02:49] LABS: Troponin I 1.148 ng/mL (< 0.028)
[2021-06-01 04:58] LABS: Mean Corpuscular HGB CONC 31.7 g/dL (32.0-36.0); Mean Corpuscular Hemoglobin 30.8 pg (27.0-31.0); Mean Corpuscular Volume 97.2 fL (78.0-98.0); Mean Platelet Volume 8.4 fL (7.4-10.4); Platelet Count 175 thou/uL (130-400); RBC Distribution Width 17.4 % (11.5-14.5); White Blood Cell (WBC) Count 4.7 thou/uL (4.8-10.8)
[2021-06-01 05:15] LABS: ALT (SGPT) 15 U/L (8-55); AST (SGOT) 20 U/L (5-34); Albumin 2.6 g/dL (3.4-4.8); Alkaline Phosphatase 55 U/L (40-110); Anion Gap 23 mmol/L (10-20); BUN (Urea Nitrogen) 87 mg/dL (9.8-20.1); Bilirubin, Total 0.4 mg/dL (0.2-1.2); Calc. Creatinine Clearance 0 mL/min (70-130); Calcium 7.2 mg/dL (7.8-10.44); Carbon Dioxide 11 mmol/L (23-31); Chloride 112 mmol/L (98-107); Globulin 3.7 g/dL (2.4-3.5); Glucose 277 mg/dL (80-115); Potassium 4.3 mmol/L (3.5-5.1); Protein, Total 6.3 g/dL (5.8-8.1); Sodium 142 mmol/L (136-145)
[2021-06-01 05:21] LABS: PTT Greater than 250.0 sec (22.9-36.1)
[2021-06-01 05:26] VITALS: BMI 28.0
[2021-06-01 06:04] LABS: Band 6 % (5-11); Lymphocytes 10 % (21-51); MDiff Complete? YES; Monocytes 3 % (0-10); Neutrophil 80 % (42-75); Reactive Lymphocytes 1 % (0-10)
[2021-06-01] MEDS ORDERED: HumaLOG 300 UNITS/3 ML VIAL ONE (07:04)
[2021-06-01] MEDS: HumaLOG 300 UNITS/3 ML VIAL SC PRN ×2 (07:06→12:21)
[2021-06-01 08:55] LABS: CRP (Inflammatory) 2.27 mg/dL (= or < 0.5); Cardiac Risk 2.9 (Less than 4.5)
[2021-06-01] MEDS ORDERED: Aspirin 81 mg Enteric Coated Tablet PO SCH (09:00)
[2021-06-01] MEDS ORDERED: Allopurinol 100 MG TAB PO SCH (09:00)
[2021-06-01] MEDS ORDERED: Mometasone 100 MCG/Formoterol 5 MCG 120 PUFF INHALER INH SCH ×2 (09:00→18:30)
[2021-06-01] MEDS ORDERED: Clopidogrel Bisulfate 75 MG TAB PO SCH (09:00)
[2021-06-01] MEDS ORDERED: Dexamethasone 4 mg/ml Vial SLOW IVP SCH (09:00)
[2021-06-01] MEDS ORDERED: Zinc Sulfate 220 MG CAP PO SCH (09:00)
[2021-06-01] MEDS ORDERED: Furosemide 20 MG/2 ML VIAL ONE (09:04)
[2021-06-01] MEDS ORDERED: Zinc Sulfate 220 MG CAP ONE (09:14)
[2021-06-01] MEDS ORDERED: Clopidogrel Bisulfate 75 MG TAB ONE (09:16)
[2021-06-01] MEDS ORDERED: Dexamethasone 4 mg/ml Vial ONE (09:16)
[2021-06-01] MEDS ORDERED: cloNIDine 0.1 MG TAB ONE (09:16)
[2021-06-01] MEDS ORDERED: Aspirin Chewable 81 MG TAB ONE (09:16)
[2021-06-01 09:21] LABS: Critical Call Chem Troponin I RESULT DECREASING; Troponin I 0.855 ng/mL (< 0.028)
[2021-06-01] MEDS: hydrALAZINE 25 MG TAB PO SCH ×3 (09:35→21:07)
[2021-06-01] MEDS: cloNIDine 0.1 MG TAB PO SCH ×2 (09:35→21:05)
[2021-06-01] MEDS: Carvedilol 25 MG TAB PO SCH ×2 (09:35→17:33)
[2021-06-01] MEDS: NIFEdipine XL 60 MG TAB PO SCH ×2 (09:36→21:07)
[2021-06-01] MEDS: Sodium Bicarbonate Tab 325 MG TAB PO SCH ×4 (09:36→21:08)
[2021-06-01] MEDS: Isosorbide Dinitrate 20 MG TAB PO SCH ×2 (09:36→20:19)
[2021-06-01] MEDS ORDERED: hydrALAZINE 25 MG TAB ONE (16:38)
[2021-06-01 21:35] VITALS: BP 123/63; TEMP 98.1
== END 2021-06-01 21:40 | disposition hospice, home (50) | DRG 177 ==
LOC: ERS 15:26 → ERHOLD 22:51 → T4-A 06-01 17:03
PROVIDERS: ADMIT Internal Medicine; ATTEND Internal Medicine
PROC: 8E0ZXY6 Isolation (ICD-10-PCS; principal; 2021-05-31)
DX: U07.1 COVID-19 (principal); J12.82 Pneumonia due to coronavirus disease 2019; I50.33 Acute on chronic diastolic (congestive) heart failure; J96.01 Acute respiratory failure with hypoxia; N18.6 End stage renal disease; I21.4 Non-ST elevation (NSTEMI) myocardial infarction; J44.0 Chronic obstructive pulmonary disease with (acute) lower respiratory infection; I13.2 Hypertensive heart and chronic kidney disease with heart failure and with stage 5 chronic kidney disease, or end stage renal disease; E87.2 Acidosis; I42.9 Cardiomyopathy, unspecified; Z66 Do not resuscitate; Z51.5 Encounter for palliative care; E11.22 Type 2 diabetes mellitus with diabetic chronic kidney disease; D63.1 Anemia in chronic kidney disease; M10.9 Gout, unspecified; Z79.82 Long term (current) use of aspirin; Z79.51 Long term (current) use of inhaled steroids; Z79.4 Long term (current) use of insulin; Z79.899 Other long term (current) drug therapy; Z90.710 Acquired absence of both cervix and uterus; Z86.73 Personal history of transient ischemic attack (TIA), and cerebral infarction without residual deficits; Z87.891 Personal history of nicotine dependence
CPT/HCPCS: 36415; 36416; 71045; 80053; 80061; 82553; 83605; 83880; 84443; 84484; 85007; 85014; 85018; 85025; 85027; 85049; 85730; 86140; 87040; 93005; J0696; J1100; J1644; J1815; J1940; J3370; U0002

== ENCOUNTER 2021-06-01 21:53 | Inpatient (IN) | payer MEDICAID, MEDICARE, OTHER ==
[2021-06-01] MEDS ORDERED: Lorazepam 2 MG/ML VIAL SLOW IVP PRN (22:18)
[2021-06-01] MEDS ORDERED: Morphine 2 MG/ML VIAL SLOW IVP PRN (22:20)
[2021-06-01] MEDS ORDERED: Scopolamine 1.5 mg/72 hour Patch TOP PRN (22:30)
[2021-06-01] MEDS ORDERED: Senokot 8.6 MG TAB PO PRN (22:30)
[2021-06-01] MEDS ORDERED: diphenhydrAMINE 50 MG/ML VIAL IVP PRN (22:30)
[2021-06-01] MEDS ORDERED: Ondansetron ODT 4 MG TAB PO PRN (22:30)
[2021-06-02] MEDS: Morphine 2 MG/ML VIAL SLOW IVP SCH ×5 (02:07→20:42)
[2021-06-02] MEDS ORDERED: Lorazepam 2 MG/ML VIAL SLOW IVP PRN (18:41)
[2021-06-02] MEDS ORDERED: Scopolamine 1.5 mg/72 hour Patch TOP PRN (18:41)
[2021-06-02] MEDS ORDERED: Ondansetron ODT 4 MG TAB PO PRN (18:41)
[2021-06-02] MEDS ORDERED: Morphine 2 MG/ML VIAL SLOW IVP PRN (18:41)
[2021-06-02] MEDS ORDERED: Senokot 8.6 MG TAB PO PRN (18:41)
[2021-06-02] MEDS ORDERED: diphenhydrAMINE 50 MG/ML VIAL IVP PRN (18:41)
[2021-06-02 21:04] VITALS: BP 162/68; TEMP 97.6
[2021-06-03] MEDS: Morphine 2 MG/ML VIAL SLOW IVP SCH ×4 (02:30→07:18)
== END 2021-06-03 08:15 | disposition expired | DRG 177 ==
LOC: T4-A 21:53 → UNDODISIN 06-02 17:08
PROVIDERS: ADMIT Family Medicine; ATTEND Family Medicine
PROC: 8E0ZXY6 Isolation (ICD-10-PCS; principal; 2021-06-01)
DX: U07.1 COVID-19 (principal); J12.82 Pneumonia due to coronavirus disease 2019; J96.01 Acute respiratory failure with hypoxia; I50.33 Acute on chronic diastolic (congestive) heart failure; N18.6 End stage renal disease; I21.4 Non-ST elevation (NSTEMI) myocardial infarction; E87.2 Acidosis; I13.2 Hypertensive heart and chronic kidney disease with heart failure and with stage 5 chronic kidney disease, or end stage renal disease; I42.9 Cardiomyopathy, unspecified; Z51.5 Encounter for palliative care; Z66 Do not resuscitate; J44.9 Chronic obstructive pulmonary disease, unspecified; E11.22 Type 2 diabetes mellitus with diabetic chronic kidney disease; D63.1 Anemia in chronic kidney disease; M10.9 Gout, unspecified; Z79.82 Long term (current) use of aspirin; Z79.51 Long term (current) use of inhaled steroids; Z79.4 Long term (current) use of insulin; Z79.899 Other long term (current) drug therapy; Z90.710 Acquired absence of both cervix and uterus; Z86.73 Personal history of transient ischemic attack (TIA), and cerebral infarction without residual deficits; Z87.891 Personal history of nicotine dependence
CPT/HCPCS: 36415; 36416; 71045; 80053; 80061; 82553; 83605; 83880; 84443; 84484; 85007; 85014; 85018; 85025; 85027; 85049; 85730; 86140; 87040; 93005; 96374; 96375; J0696; J1100; J1644; J1815; J1940; J2060; J2270; J3370; U0002